=== PATIENT | male | born 1960 | race Caucasian/White ===

== ENCOUNTER 2021-04-18 12:12 | Outpatient (CLI) | payer OTHER, SELFPAY ==
--- NOTE | ~2021-04-18 | CT_ITS ---
EXAMINATION: CT lung screening DATE: 04/18/2021 12:29 INDICATION: Lung cancer screening, personal history of nicotine dependen LUNG CANCER SCREENING,PERSON AL HISTORY OF NICOTINE DEPENDENCE TECHNIQUE: Computed tomography (CT) of the chest was performed without intravenous contrast. Addition al 3D reconstructions utilizing coronal maximum intensity projection (MIP) were performed. Automated exposure control and iterative reconstruction technique were employed. The dose-length product was 27 9.96 mGy-cm. COMPARISON: CT abdomen and pelvis dated 08/25/2017 FINDINGS: Chronic elevation of the left hemidiaphragm. Again seen is a peripheral and lower lung predominant gr oundglass opacities, irregular septal line thickening and peripheral honeycombing consistent with usu al interstitial pneumonia (UIP) pattern chronic interstitial lung disease. There are some associated mild sulcal bronchiectasis most prominent in the lower lobes. 4 mm noncalcified nodule in the right u pper lobe on series 4, image 43. Calcified right apical nodule along with calcified right hilar and m ediastinal lymph nodes and multiple splenic and hepatic calcifications consistent with old granulomat ous disease. No pleural effusion or pneumothorax. Heart size is normal. Atherosclerotic coronary yoseph ry calcific location. Aortic valve calcification. No pericardial effusion. Enlargement of the main pu lmonary artery consistent with pulmonary arterial hypertension. Thoracic aorta is normal in caliber. Likely reactive mildly prominent prevascular lymph node measuring 9 mm in maximal short axis diameter on the sagittal images which remains within normal limits. No other pathologically enlarged thoracic lymphadenopathy. 2 cm cyst at the upper pole of the right kidney. Mild diverticulosis along the visu alized proximal descending colon without surrounding infiltrate change to suggest diverticulitis. Mod erate to severe mid to lower lumbar spondylosis. Chronic appearing mild anterior wedging of T7, minim al at T6, T8, T11 and T12. IMPRESSION: 1. Lung-RADS category 2: Benign appearance or behavior. Continue annual screening with noncontrast lo w-dose chest CT in 12 months. 2. Peripheral and lower lung predominant chronic interstitial lung disease with UIP pattern and with mild associated bronchiectasis in the lower lobes. 3. Enlargement of the main pulmonary artery consistent with pulmonary arterial hypertension. Reviewed, dictated and finalized at location A. [employer] IMPRESSION: 1. Lung-RADS category 2: Benign appearance or behavior. Continue annual screeni ng with noncontrast low-dose chest CT in 12 months. 2. Peripheral and lower lung predominant chronic interstitial lung disease with UIP pattern and with mild associated bronchiectasis in the lower lobes. 3. Enlargement of the main pulmonary artery consistent with pulmonary arterial hypertension.
== END 2021-04-18 12:13 | disposition home or self-care (01) ==
LOC: CHSLAB 12:14
PROVIDERS: PCP Internal Medicine; Visit Provider Internal Medicine
DX: Z12.2 Encounter for screening for malignant neoplasm of respiratory organs (principal); Z87.891 Personal history of nicotine dependence
CPT/HCPCS: 71271

== ENCOUNTER 2021-11-27 09:27 | Emergency (ER) | payer OTHER, SELFPAY ==
--- NOTE | ~2021-11-27 | US_ITS ---
EXAMINATION: US venous doppler LE DATE: 11/27/2021 11:47 INDICATION: Bilateral lower limb swelling and erythema, left greater than right. Positive d-dimer. TECHNIQUE: Grayscale ultrasound images without and with compression and Doppler ultrasound images of the bilateral lower extremity veins were obtained. COMPARISON: None. FINDINGS: Small noncompressible but nonocclusive echogenic focus within the lumen of the right popliteal vein w hich could represent a small amount of thrombosis, potentially calcified versus a calcified valve hilario paige. The visualized portions of right common femoral vein, profunda (deep) femoral vein, femoral vei n, posterior tibial veins, peroneal veins, gastrocnemius vein and greater saphenous vein outflow are patent. The visualized portions of left common femoral vein, profunda femoral vein, femoral vein, popliteal v ein, posterior tibial veins, peroneal veins, gastrocnemius vein and greater saphenous vein outflow ar e patent. Subcutaneous edema at the left calf. IMPRESSION: 1. Small echogenic focus within the lumen of the right popliteal vein which could represent either a very small amount of thrombus or potentially a calcified valve leaflet. 2. No deep venous thrombosis in the left lower limb. Reviewed, dictated and finalized at location A. IMPRESSION: 1. Small echogenic focus within the lumen of the right popliteal vein which co uld represent either a very small amount of thrombus or potentially a calcified valve leaflet. 2. No deep venous thrombosis in the left lower limb.
--- NOTE | ~2021-11-27 | XR_ITS ---
EXAMINATION: XR tibia fibula LT 2V DATE: 11/27/2021 10:20 INDICATION: Left leg swelling and oozing TECHNIQUE: Anteroposterior and lateral views of the left tibia and fibula were obtained on overlappin g proximal and distal images. COMPARISON: None. FINDINGS: Bone alignment is normal. Normal joint space at the left knee, ankle and visualized portion of the mi d and hindfoot. No left knee or ankle joint effusion. Moderate-sized plantar calcaneal spur. Soft tis may swelling with diffuse subcutaneous edema about the left lower leg exam from just above the knee t o the ankle. Some dystrophic soft tissue calcifications anterior to the mid to distal lower leg. IMPRESSION: 1. No left knee or ankle joint effusions or acute osseous abnormality. Reviewed, dictated and finalized at location A.
--- NOTE | ~2021-11-27 | XR_ITS ---
EXAMINATION: XR chest 1V portable DATE: 11/27/2021 10:19 INDICATION: Congestive heart failure TECHNIQUE: frontal view of the chest was obtained. COMPARISON: Chest radiograph dated 07/04/[address] dated 04/18/2021 FINDINGS: Mild basilar predominant reticular opacities appear to correspond to usual interstitial pneumonia (UI P) pattern chronic interstitial lung disease on prior CT. No pleural effusion or pneumothorax. The ca rdiomediastinal silhouette is within normal limits for AP technique. IMPRESSION: 1. Mild basilar chronic interstitial lung disease with UIP pattern on prior CT. Reviewed, dictated and finalized at location A.
[2021-11-27 09:30] VITALS: BP 140/90; PULSE 83; RESP 18; TEMP 36.6; O2SAT 97
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
--- NOTE | 2021-11-27 09:45 | ECG_ITS ---
Measurements Intervals [place] Rate: 81 P: -47 [place]: 177 QRS: 57 QRSD: 97 T: 56 QT: 340 QTc: 397 Interpretive Statements ECTOPIC ATRIAL RHYTHM INCOMPLETE RIGHT BUNDLE BRANCH BLOCK ANTEROSEPTAL MYOCARDIAL INFARCTION , OF INDETERMINATE AGE Electronically Signed On 11-27-2021 12:41:39 CDT by Brayan Tran M.D.
[2021-11-27 10:08] LABS: Hematocrit 41.1 % (40.0-54.0); Hemoglobin 13.2 g/dL (14.0-18.0); Mean Corpuscular HGB Conc 32.1 g/dL (32.0-36.0); Mean Corpuscular Hemoglobin 27.3 pg (27.0-31.0); Mean Corpuscular Volume 84.9 fL (78.0-102.0); Mean Platelet Volume 9.6 fl (8.7-11.0); Platelet Count Result 344 K/mm3 (150-420); Red Blood Count 4.84 M/mm3 (4.70-6.10); White Blood Count 15.2 K/mm3 (4.8-10.8)
[2021-11-27 10:17] LABS: Band Neutrophils Percent 1 % (0-6); Eosinophils Percent Manual 4 % (1-6); Lymphocytes Absolute Manual 2.58 K/mm3 (1.1-4.5); Lymphocytes Percent Manual 17 % (18-44); Monocytes Absolute Manual 1.21 K/mm3 (0.1-0.90); Monocytes Percent Manual 8 % (3-9); Myelocytes Percent 2 %; Neutrophils Absolute Manual 10.48 K/mm3 (1.3-6.7); Neutrophils Percent Manual 68 % (46-73); Total Cells Counted 100
[2021-11-27 10:18] LABS: Platelet Estimate Adequate (Adequate)
[2021-11-27 10:22] LABS: D Dimer 1.77 mg/L (0.19-0.50)
[2021-11-27 10:30] LABS: Lactic Acid Reflex 1.5 mmol/L (0.4-2.0)
[2021-11-27 10:39] LABS: Alanine Aminotransferase 63 U/L (16-63); Albumin Level 2.4 g/dL (3.4-5.0); Alkaline Phosphatase 93 U/L (46-116); Anion Gap 8 mmol/L (8-16); Aspartate Amino Transferase 41 U/L (15-37); Bilirubin,Total 0.2 mg/dL (0.00-1.00); Blood Urea Nitrogen 17 mg/dL (7-18); Calcium 8.7 mg/dL (8.5-10.1); Carbon Dioxide 28 mmol/L (21-32); Chloride 102 mmol/L (98-108); Creatine Kinase 55 U/L (39-308); Estimated CRCL calculation 83 ml/min; Estimated Glomerular Filt Rate > 60; Glucose 126 mg/dL (70-99); NT Pro B Type Natriuretic Pept 175 pg/mL (0-125); Osmolality Calculated 289 mOsm/kg (285-295); Potassium 3.7 mmol/L (3.5-5.1); Sodium 138 mmol/L (136-145); Thyroid Stimulating Hormone 2.17 uIU/mL (0.36-3.74); Total Protein 6.8 g/dL (6.4-8.2)
[2021-11-27 10:40] VITALS: BP 140/82; PULSE 80; RESP 16; O2SAT 99
[2021-11-27 10:51] LABS: Partial Thromboplastin Time 29.8 SEC (23.90-30.70); Prothrombin Time 10.7 Seconds (9.50-12.10)
[2021-11-27 11:00] VITALS: BP 144/92; PULSE 79; RESP 16; TEMP 36.3; O2SAT 97
[2021-11-27 11:11] LABS: Add Urine Microscopic? YES; Appearance Urine Clear (Clear); Bilirubin Urine Negative (Negative); Blood Urine 1+ (Negative); Color Urine Yellow (Yellow); Glucose Urine UA Negative (Negative); Ketones Urine Negative (Negative); Leukocyte Esterase Ur Negative (Negative); Nitrate Urine Negative (Negative); Protein Urine Trace (Negative); Specific Grav Ur >= 1.030 (1.010-1.020); Urobilinogen Urine 0.2 mg/dL (0.2-1.0)
[2021-11-27 11:19] LABS: Bacteria Urine Trace /hpf; Mucus Urine Few /lpf; Squamous Epithelial Cell Urine Rare /hpf (Few); WBC Urine None seen /hpf (0-3)
[2021-11-27 12:24] VITALS: BP 136/70; PULSE 84; RESP 16; TEMP 36.4; O2SAT 97
== END 2021-11-27 12:34 | disposition left against medical advice (07) ==
PROVIDERS: Emergency Provider Internal Medicine Critical Care Medicine; PCP Internal Medicine
DX: M79.89 Other specified soft tissue disorders (principal); L03.116 Cellulitis of left lower limb; J84.9 Interstitial pulmonary disease, unspecified
CPT/HCPCS: 36415; 71045; 73590; 80053; 81001; 82550; 83605; 83880; 84443; 84484; 85025; 85380; 85610; 85730; 87040; 93005; 93970; 99284

== ENCOUNTER 2023-09-10 15:17 | Outpatient (CLI) | payer MEDICARE, SELFPAY ==
--- NOTE | ~2023-09-10 | US_ITS ---
US arterial ankle brachial ind INDICATION: Peripheral arterial disease. Venous ulcer. TECHNIQUE: Segmental pressures and plethysmographic and Doppler waveforms of the brachial and lower e xtremity arteries were obtained. COMPARISON: None. FINDINGS: Right and left brachial artery pressures of 146 mm Hg and 145 mm Hg, respectively, are concordant (no rmal difference <= 30 mmHg). The right ankle-brachial index (NELLY) is 1.27 (normal >= 0.9-1.0). The right great toe-brachial index (TBI) is 0.91 (normal >= 0.60). The left NELLY is 1.25. The left TBI is 0.83. IMPRESSION: 1. Normal ankle-brachial indices. Reviewed, dictated and finalized at location B.
--- NOTE | ~2023-09-10 | US_ITS ---
EXAMINATION:US venous doppler LE BI INDICATION:Venous ulcer. TECHNIQUE: Multiple grayscale, color flow and Doppler images of the right and left lower extremity de ep venous systems were obtained and reviewed. COMPARISON:Ultrasound dated 11/27/2021 FINDINGS: The common femoral, superficial femoral and popliteal veins demonstrate normal respiratory variation, augmentation and compressibility. Color flow is also seen within the posterior tibial, pe roneal, greater saphenous and profunda veins. IMPRESSION: 1: No lower extremity deep venous thrombosis. Reviewed, dictated and finalized at location B.
== END 2023-09-10 15:18 | disposition home or self-care (01) ==
PROVIDERS: PCP Internal Medicine; Visit Provider Internal Medicine
DX: I70.213 Atherosclerosis of native arteries of extremities with intermittent claudication, bilateral legs (principal); L97.519 Non-pressure chronic ulcer of other part of right foot with unspecified severity; R22.43 Localized swelling, mass and lump, lower limb, bilateral
CPT/HCPCS: 93922; 93970

== ENCOUNTER 2024-10-25 12:27 | Inpatient (IN) | payer MEDICARE, SELFPAY ==
[2024-10-25] VITALS (16 sets, daily range): BP systolic 132–197; BP diastolic 90–116; PULSE 105–122; RESP 19–20; TEMP 36.4–38.2; O2SAT 93–98; BMI 29.0
--- NOTE | ~2024-10-25 | US_ITS ---
EXAMINATION:US venous doppler LE BI INDICATION:Bilateral venous stasis TECHNIQUE: Multiple grayscale, color flow and Doppler images of the right and left lower extremity de ep venous systems were obtained and reviewed. COMPARISON:No prior studies for comparison. FINDINGS: The common femoral, superficial femoral and popliteal veins demonstrate normal respiratory variation, augmentation and compressibility. Color flow is also seen within the posterior tibial, pe roneal, greater saphenous and profunda veins. IMPRESSION: 1: No lower extremity deep venous thrombosis. Reviewed, dictated and finalized at location A.
--- NOTE | ~2024-10-25 | CT_ITS ---
EXAMINATION: CT brain wo con DATE: 10/25/2024 13:06 INDICATION: Altered mental status. TECHNIQUE: Computed tomography (CT) of the head was performed without intravenous contrast. The dose- length product was 756.67 mGy-cm. Automated exposure control and iterative reconstruction technique w ere employed. COMPARISON: None FINDINGS: Study limited by motion and beam hardening artifact. Brain parenchymal volume is normal for age. Evaluation for subtle hemorrhage Limited. No significant hemorrhage, mass or mass effect. No ve ntriculomegaly or midline shift. Basilar cisterns are patent. There is intracranial atherosclerosis. IMPRESSION: 1. No acute intracranial abnormality. Limited study. Reviewed, dictated and finalized at location A.
--- NOTE | ~2024-10-25 | XR_ITS ---
XR chest 1V portable 10/25/2024 13:05 Indication: Altered mental status Procedure: AP portable chest Comparison: Comparison to multiple prior studies sequentially, with oldest reviewed study dated 04/2012. Findings: Cardiomegaly with mild interstitial edema. Small pleural effusions. No acute osseous abnorm ality. Impression: 1: Cardiomegaly with mild interstitial edema. Reviewed, dictated and finalized at location A. Impression: 1: Cardiomegaly with mild interstitial edema.
--- NOTE | 2024-10-25 12:38 | ECG_ITS ---
Test Date: 2024-10-25 12:54:30 Measurements Intervals [place] Rate: 104 P: 65 [place]: 168 QRS: 77 QRSD: 95 T: 54 QT: 306 QTc: 404 Interpretive Statements SINUS TACHYCARDIA WITH OCCASIONAL VENTRICULAR PREMATURE COMPLEXES POSSIBLE LEFT ATRIAL ENLARGEMENT [-0.1mV P-WAVE IN V1/V2] SEPTAL MYOCARDIAL INFARCTION , OF INDETERMINATE AGE [40+ ms Q WAVE IN V1/V2] No previous ECG available for comparison Electronically Signed On 10-25-2024 15:22:32 CDT by Alex Luz M.D.
--- OUTSIDE RECORDS SUMMARY | 2024-10-25 12:39 | XMS_ITS | Clinical Summary ---
Author Organization [facility] Address [address] [place] [id number] Care Team Providers Care Gallery Host Name Role Phone Rosibel Franz MD Primary Care Provider [phone] Allergies No known active allergies Medications losartan (COZAAR) 50 MG tablet Take 1 tablet (50 mg total) by mouth daily. Active atorvastatin (LIPITOR) 10 MG tablet Take 1 tablet (10 mg total) by mouth daily. 09/16/2023 Active Immunizations Immunization Administration Dates Next Due Tdap (Boostrix) 12/16/2023 Social History Tobacco Use Types Packs/Day Years Used Date Smoking Tobacco: Some Days Cigarettes Smokeless Tobacco: Never Tobacco Cessation:Ready to Q uit: Not Asked; Counseling Given: Not Answered Alcohol Use Standard Drinks/Week Comments Not Currently 0 (1 standard drink = 0.6 oz pur e alcohol) Sex and Gender Information Value Date Recorded Sex Assigned at Not on file Legal Sex Male 11:34 PM [employer] Gender Identity Not on file Sexual Orientation Not on file Last Filed Vital Signs Vital Sign Reading Time Taken Comments Blood Pressure 161/103 12/16/2023 11:45 AM CDT Pulse 85 12/16/2023 11:45 AM CDT Temperature 36.8 C (98.3 F) 12/16/2023 10:38 AM CDT Respiratory Rate 17 12/16/2023 11:45 AM CDT Oxygen Saturation 99% 12/16/2023 11:45 AM CDT Inhaled Oxygen Concentration - - Weight 109.8 kg (242 lb) 12/16/2023 5:01 AM CDT Height 185.4 cm (6' 1) 12/16/2023 5:01 AM CDT Body Mass Index 31.93 12/16/2023 5:01 AM CDT Plan of Treatment Health Maintenance Due Date Last Done Comments Colorectal Cancer Screening Colonoscopy (10 Years) 1961 Annual Physical 1964 Hepatitis C 06/06/1979 Zoster Vaccines (1 of 2) 06/06/2011 Pneumococcal Vaccine: 50+ Years (2 of 2 - PCV) 05/13/2013 05/13/2012 COVID-19 Vaccine (1 - 2023-2 5 season) 2023 DTaP, Tdap and Td Vaccines ( 3 - Td or Tdap) 12/15/2033 12/16/2023, 07/01/2014 RSV Immunization or 60+ Years (1 - 1-dose 75+ series) 2036 Meningococcal B Vaccine Aged Out No l onger eligible based on patient's age to complete this topic Meningococcal Vaccine Aged Out No glenn lawrence eligible based on patient's age to complete this topic RSV Immunizations Under 20 Months Aged Out No longer eligible b ased on patient's age to complete this topic Additional Health Concerns Infection Onset Date 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
--- NOTE | 2024-10-25 12:40 | ED_ITS ---
HPI - Skin/Abscess/Foreign Bdy General Chief complaint: Fever Stated complaint: fever, cellulitis to legs, found unresponsive Time Seen by Provider: 10/25/24 12:38 Source: patient Mode of arrival: EMS Limitations: altered mental status ( Suspected over the past 24 hours; appears baseline at this time) History of Present Illness HPI narrative: patient is a 64-year-old male found slumped over in his van and PD and EMS were called to evaluate the patient. PD was able to get him out of the car and sit him on the side and he was AAO x3. EMS brought him to the emergency room. His temperature was a 102.8?. Patient has been sitting in his van on and off for the past 24 hours. It is currently very hot outside. He has been arguing with his girlfriend as well over the past day. MD complaint: rash ( Left lower extremity and left thigh) and other ( patient has been out in the heat and appears very dry) Onset (ago): day(s) ( 2) Location: LLE Severity: mild Severity scale (1-10): 3 Quality: aching Pain Consistency: constant Relieving factors: none Exacerbating factors: none Context: other ( patient has been outside in the heat for the past 24 hours in his van as well as bilateral lower extremity swelling with bandages that are soiled of urine on his ankles and feet; further he has left inner thigh and left lower extremity redness of cellulitis and elevated temperature) Associated symptoms: fever Treatments prior to arrival: bandages Related Data Home Medications ?Medication ?Instructions ?Recorded ?Confirmed ?Last Taken ?Type atorvastatin 10 mg tablet 10 mg PO DAILY 11/27/21 10/25/24 Unknown History losartan 100 mg tablet 100 mg PO DAILY 11/27/21 10/25/24 Unknown History Allergies Allergy/AdvReac Type Severity Reaction Status Date / Time No Known Allergies Allergy Verified 10/25/24 12:52 Review of Systems 2 Review of Systems: All systems reviewed & are unremarkable except as noted in HPI and below Constitutional: Constitutional: Reports no additional constitutional complaints Eyes: Eyes: Reports no additional eye complaints ENT: Reports system reviewed and no additional complaints, except as documented Cardiovascular: Cardiovascular: Reports no additional cardiovascular complaints Respiratory: Respiratory: Reports no additional respiratory complaints Gastrointestinal: Gastrointestinal: Reports no additional gastrointestinal complaints Genitourinary: Genitourinary: Reports no additional male genitourinary complaints Musculoskeletal: Musculoskeletal: Reports no additional musculoskeletal complaints Integumentary/Breasts: Skin/Breast: Reports system reviewed and no additional complaints, except as docu Neurologic: Reports system reviewed and no additional complaints, except as documented Psychiatric: Psychiatric: Reports no additional psychiatric complaints Endocrine: Endocrine: Reports no additional endocrine complaints Hematologic/Lymphatic: Hematologic/Lymphatic: Reports no additional hematologic/lymphatic complaints Allergic/Immunologic: Allergic/Immunologic: Reports no additional allergic/immunologic complaints PMFSH Past Medical History Medical History Dyslipidemia Social History Social History Smoking packs per day: 1 Smoking cigarettes per day: 20.0 Smoking status: Current every day smoker Tobacco type: cigarettes Second hand tobacco smoke exposure: No Substance use: current Substance use type: marijuana and amphetamines Do You Feel Safe in your Home?: Yes Lack of Transportation: No Lack of Food: Never True Current Housing: I Have Housing Concerned About Future Housing: No Difficulty Paying Gas/Electric Bills: No Difficulty Paying for Meds: No Currently Unemployed: No Education: High School Diploma/GED Difficulty w/ Childcare or Family Care: No Spiritual care concerns: No Exam 2 Const: General: no acute distress Nutritional Appearance: well nourished Orientation/consciousness: patient oriented x3 Limitations: no limitations HENMT: Head: normal to inspection Ears: external ears normal F leon/Nose/Sinus: Normal external nose present Eyes: Conjunctivae: conjunctivae normal Pupils: Equal, round and reactive pupils present EOM: EOMs intact bilaterally Neck: Neck: normal visual inspection Chest: Chest palpation & inspection: normal inspection of the chest Resp: Effort & Inspection: normal respiratory effort and not labored A uscultation: clear to auscultation bilaterally and no crackles Cardio: Rate: regular rate Rhythm: regular rhythm Heart sounds: no murmurs GI: Inspection: non-distended GI Palp: Yes Soft to palpation and No Tenderness to palpation present (GI) Auscultation: normal bowel sounds : General: Yes bladder normal to palpation Back/Spine/Pelvis: Back: no CVA tenderness Skin: General skin exam: No normal color Rashes: rash noted Wounds: no wounds Other: left inner thigh has an elongated inner thigh erythema/ rash of cellulitis; left lower extremity from the mid guevara down to the ankle has a erythema mostly circumferentially of cellulitis Neuro: General: patient oriented x3, moves all extremities, no meningeal signs, no focal motor deficits and CN's II-XI intact bilaterally Cranial nerves: Yes Nystagmus not present Speech: normal speech Other: fast exam is negative, NIH score is 0, GCS is 15 Extrem: General: normal to inspection Psych: Mental Status: mental status grossly normal Affect: normal affect Attitude: cooperative Course Vital Signs Vital signs: Vital Signs Temperature 38.2 C H 10/25/24 12:27 Pulse Rate 106 H 10/25/24 12:27 Respiratory Rate 20 10/25/24 12:27 Blood Pressure 132/93 H 10/25/24 12:27 Pulse Oximetry 93 10/25/24 12:27 Oxygen Delivery Room Air 10/25/24 12:27 Temperature 36.4 C 10/26/24 00:00 Pulse Rate 89 10/26/24 04:00 Respiratory Rate 20 10/26/24 00:00 Blood Pressure 124/69 10/26/24 00:00 Pulse Oximetry 96 10/26/24 00:00 Oxygen Delivery Room Air 10/26/24 00:00 MDM - Skin/Abscess/Foreign Bdy MDM Narrative Medical decision making narrative: patient is a 64-year-old male with over heat versus sepsis with elevated temperature and cellulitis of the left lower extremity and left inner thigh as well as sitting in his car for the last 24 hours with the heat outside elevated. We will do a septic workup as well as monitor him for heat exhaustion. He will get IV fluids. We will cool the patient. We will check for altered mental status over the past 24 hours with a workup in that direction as well. Lab Data Attestation: I reviewed the patient's lab results. 10/25/24 12:55 10/25/24 12:55 Labs: Lab Results 10/25/24 10/25/24 10/25/24 Range/Units 12:39 12:40 12:55 WBC 17.2 H (4.8-10.8) K/mm3 RBC 6.69 H (4.70-6.10) M/mm3 Hgb 17.6 (14.0-18.0) g/dL Hct 54.9 H (40.0-54.0) % MCV 82.1 (78.0-102.0) fL MCH 26.3 L (27.0-31.0) pg MCHC 32.1 (32-36) g/dL RDW 16.5 H (11.6-14.4) % Plt Count 252 (150-420) K/mm3 MPV 9.3 (8.7-11.0) fl Immature Gran % (Auto) 0.6 H (0.0-0.0) % Neut % (Auto) 90.1 H (50.0-70.0) % Lymph % (Auto) 3.8 L (18.0-42.0) % Carroll % (Auto) 5.3 (2.0-11.0) % Eos % (Auto) 0.0 L (1.0-6.0) % Baso % (Auto) 0.2 (0.0-1.0) % Lymph # (Auto) 0.65 L (1.10-4.50) K/mm3 Carroll # (Auto) 0.91 H (0.10-0.90) K/mm3 Eos # (Auto) 0.00 L (0.02-0.50) K/mm3 Baso # (Auto) 0.04 (0.00-0.10) K/mm3 Abs Immat Gran (auto) 0.11 H (0.00-0.00) K/mm3 Absolute Neuts (auto) 15.46 H (1.70-7.20) K/mm3 Absolute Nucleated RBC 0.00 (0.00-0.00) K/mm3 Nucleated RBC % 0.0 (0-0.0) % Sodium 139 (137-145) mmol/L Potassium 4.0 (3.4-5.0) mmol/L Chloride 104 (98-107) mmol/L Carbon Dioxide 27 (22-30) mmol/L Anion Gap 8 (4-12) mmol/L BUN 36 H (9-20) mg/dL Creatinine 1.93 H (0.7-1.3) mg/dL Estim Creat Clear Calc Not Reportable Estimated GFR 35 L (59 - ) Glucose 136 H (65-110) mg/dL Calculated Osmolality 298 H (285-295) mOsm/kg Lactic Acid 1.9 (0.4-2.0) mmol/L Calcium 8.9 (8.4-10.2) mg/dL Total Bilirubin 0.6 (0.2-1.3) mg/dL AST 59 (17-59) U/L ALT 29 (6-50) U/L Alkaline Phosphatase 93 (38-126) U/L Troponin I 0.026 (0.000-0.034) ng/mL NT-Pro-B Natriuret Pep 454 H (19.9-100) pg/mL Total Protein 8.8 H (6.3-8.2) g/dL Albumin 4.0 (3.5-5.1) g/dL Urine Color Yellow (Yellow) Urine Appearance Clear (Clear) Urine pH 6.0 (5.0-8.0) Ur Specific [place] 1.020 (1.010-1.020) Urine Protein 2+ H (Negative) Urine Glucose (UA) Negative (Negative) Urine Ketones Trace H (Negative) Ur Blood (Man) 3+ H (Negative) Urine Nitrate Negative (Negative) Urine Bilirubin Negative (Negative) Urine Urobilinogen 1.0 (0.2-1.0) mg/dL Leukocyte Esterase Rfl Negative (Negative) KEMAR/UL Urine RBC 3-5 H (0-2) /hpf Urine WBC 0-3 (0-3) /hpf Ur Squamous Epith Cells Few (Few) /hpf Urine Bacteria 1+ H (None) /hpf Granular Casts 1-2 H (None) /lpf Urine Mucus Present /lpf Imaging Data Attestation: I personally reviewed and interpreted this imaging study as follows: Radiologist's impression: Chest x-ray is negative for acute process CT scan of the head was negative for acute process ECG Data EKG #1: Attestation: I personally reviewed and interpreted this ECG as follows: ECG completion date: 10/25/24 ECG completion time: 13:18 EKG Interpretation: tachycardia, sinus rhythm, PVCs, non-specific ST changes, normal QRS, normal QT and NL axis Discharge Plan Discharge Clinical Impression: EDELMIRA (acute kidney injury), Acute dehydration, Sepsis due to cellulitis Heat exhaustion Qualifiers: Encounter type: initial encounter Qualified Code(s): T67.5XXA - Heat exhaustion, unspecified, initial encounter Patient Disposition: [facility] Condition: Stable Time of Disposition: 14:15
[2024-10-25 13:00] LABS: Hematocrit 54.9 % (40.0-54.0); Hemoglobin 17.6 g/dL (14.0-18.0); Immature Granulocyte Percent A 0.6 % (0.0-0.0); Lymphocytes Absolute Auto 0.65 K/mm3 (1.10-4.50); Mean Corpuscular HGB Conc 32.1 g/dL (32-36); Mean Corpuscular Hemoglobin 26.3 pg (27.0-31.0); Mean Corpuscular Volume 82.1 fL (78.0-102.0); Nucleated Red Blood Cells Absolute Auto 0.00 K/mm3 (0.00-0.00); Nucleated Red Blood Cells Perc 0.0 % (0-0.0); Platelet Count Result 252 K/mm3 (150-420); Red Blood Count 6.69 M/mm3 (4.70-6.10); White Blood Count 17.2 K/mm3 (4.8-10.8)
[2024-10-25] MEDS: SODIUM CHLORIDE 0.9% IV 1,000 ML 999 ML IV CONT ×2 (13:05→13:40)
[2024-10-25 13:12] LABS: Alanine Aminotransferase 29 U/L (6-50); Albumin Level 4.0 g/dL (3.5-5.1); Alkaline Phosphatase 93 U/L (38-126); Anion Gap 8 mmol/L (4-12); Aspartate Amino Transferase 59 U/L (17-59); Bilirubin,Total 0.6 mg/dL (0.2-1.3); Blood Urea Nitrogen 36 mg/dL (9-20); Calcium 8.9 mg/dL (8.4-10.2); Carbon Dioxide 27 mmol/L (22-30); Chloride 104 mmol/L (98-107); Estimated Glomerular Filt Rate 35; Glucose 136 mg/dL (65-110); Osmolality Calculated 298 mOsm/kg (285-295); Potassium 4.0 mmol/L (3.4-5.0); Sodium 139 mmol/L (137-145); Total Protein 8.8 g/dL (6.3-8.2)
--- OUTSIDE RECORDS SUMMARY | 2024-10-25 13:13 | XMS_ITS | Clinical Summary ---
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
[2024-10-25 13:23] LABS: Troponin I 0.026 ng/mL (0.000-0.034)
[2024-10-25] MEDS: PIPERACILLIN/TAZOBACTAM SOD 3.375 GM in SODIUM CHLORIDE 0.9% IV 50 ML 100 ML IVPB (13:40)
[2024-10-25 13:42] LABS: NT Pro B Type Natriuretic Pept 454 pg/mL (19.9-100)
--- NOTE | 2024-10-25 15:10 | ADMGEN ---
This patient, Juan Guillory, was admitted to 2nd Floor Room 211-1. Patient/family oriented to hospital policies and general routines including ID bracelet, bed and alarms, visiting hours, pain management, procedures, bathroom and other care routines, personal items, smoking policy, room service/diet, and visiting hours. Information on how to activate the Rapid Response Team has been discussed. Patient/Family are encouraged to report perceived risks to care and to ask questions if they do not understand what they are told or what they should do.
[2024-10-25 16:07] LABS: Add Urine Microscopic? YES; Appearance Urine Clear (Clear); Glucose Urine UA Negative (Negative); Leukocyte Esterase Ur Negative LEU/UL (Negative); Nitrate Urine Negative (Negative); Specific Grav Ur 1.020 (1.010-1.020)
[2024-10-25] MEDS: LOSARTAN POTASSIUM 50 MG TABLET PO (17:34)
[2024-10-25] MEDS: ceFAZolin 1 GM in SODIUM CHLORIDE 0.9% IV 50 ML 100 ML IVPB (17:36)
[2024-10-25] MEDS: SODIUM CHLORIDE 0.9% IV 1,000 ML 100 ML IV CONT (17:36)
[2024-10-25] MEDS: ACETAMINOPHEN 325 MG TABLET 650 MG PO (21:43)
[2024-10-26] VITALS: BP 124/69; PULSE 97; RESP 20; TEMP 36.4; O2SAT 96
[2024-10-26] MEDS: ceFAZolin 1 GM in SODIUM CHLORIDE 0.9% IV 50 ML 100 ML IVPB ×3 (00:03→17:18)
[2024-10-26 04:00] VITALS: PULSE 89
--- NOTE | 2024-10-26 04:00 | PC.NURSE ---
Patient awake, more alert, asking for food and more water, sandwich and ice water provided. Explained to pt why he is here, seems to understand at this time.
[2024-10-26] MEDS: SODIUM CHLORIDE 0.9% IV 1,000 ML 100 ML IV CONT (04:34)
[2024-10-26 08:00] VITALS: BP 102/66; PULSE 88; PULSE 90; RESP 18; TEMP 36.7; O2SAT 95
[2024-10-26 08:03] LABS: Hematocrit 47.2 % (40.0-54.0); Hemoglobin 14.8 g/dL (14.0-18.0); Immature Granulocyte Percent A 0.4 % (0.0-0.0); Lymphocytes Absolute Auto 0.90 K/mm3 (1.10-4.50); Mean Corpuscular HGB Conc 31.4 g/dL (32-36); Mean Corpuscular Hemoglobin 26.0 pg (27.0-31.0); Mean Corpuscular Volume 83.0 fL (78.0-102.0); Nucleated Red Blood Cells Absolute Auto 0.00 K/mm3 (0.00-0.00); Nucleated Red Blood Cells Perc 0.0 % (0-0.0); Platelet Count Result 217 K/mm3 (150-420); Red Blood Count 5.69 M/mm3 (4.70-6.10); White Blood Count 16.8 K/mm3 (4.8-10.8)
[2024-10-26 08:14] LABS: Alanine Aminotransferase 23 U/L (6-50); Albumin Level 2.7 g/dL (3.5-5.1); Alkaline Phosphatase 75 U/L (38-126); Anion Gap 3 mmol/L (4-12); Aspartate Amino Transferase 44 U/L (17-59); Bilirubin,Total 0.4 mg/dL (0.2-1.3); Blood Urea Nitrogen 26 mg/dL (9-20); Calcium 7.9 mg/dL (8.4-10.2); Carbon Dioxide 28 mmol/L (22-30); Chloride 107 mmol/L (98-107); Estimated CRCL calculation 53 ml/min; Estimated Glomerular Filt Rate 51; Glucose 106 mg/dL (65-110); Magnesium 1.9 mg/dL (1.6-2.3); Osmolality Calculated 290 mOsm/kg (285-295); Potassium 3.9 mmol/L (3.4-5.0); Sodium 138 mmol/L (137-145); Total Protein 6.2 g/dL (6.3-8.2)
[2024-10-26 08:17] LABS: Hemoglobin A1C 5.9 % (<5.7)
[2024-10-26] MEDS: LOSARTAN POTASSIUM 50 MG TABLET PO (08:59)
[2024-10-26] MEDS: ENOXAPARIN 40 MG/0.4 ML SYRINGE SUB-Q (08:59)
--- NOTE | 2024-10-26 09:01 | P.HP_ITS ---
H&P: HPI History of Present Illness Date/Time: 10/26/24 09:01 Chief Complaint: Fever/ Unresponsive/ cellulitis of bilateral lower extremities Narrative: Patient is a 64-year-old male who was brought into the emergency department by PD and EMS after they were called for further evaluation. Per the medical chart patient girlfriend called EMS he was found sitting in his van unresponsive and found to have a temperature of 102.8 per reports patient had been sitting in his van for greater than 24 hours with outside temperatures at severe highs. when speaking with patient he thought he was brought in 4 days prior does not recall events leading to his arrival to the emergency department patient is not the best historian and reports he currently takes no medications and is unsure of his previous medical history but did report he has had multiple issues with his lower extremities. patient states he was indicator earlier this year due to his lower extremities at which time they had recommended IV antibiotic therapy however he signed out AMA from that facility. patient currently does not follow with any primary care physician outpatient. Patient states he does smoke about a pack of cigarettes a day when questioned about illicit drug use or alcohol he states he does not do either however his previous medical records indicate he does smoke marijuana and has done amphetamines. In the ED: in the emergency department patient was found to have leukocytosis of 17, temperature was down to 100.8, tachycardia 122, BP stable. CXR showed cardiomegaly with some interstitial edema and head CT with no acute findings. lactic acid was within normal limits and severe bilateral lower extremity cellulitis with venous insufficiency. patient is also found to have an acute kidney injury likely secondary to heat exposure and dehydration with a creatinine of 1.93. Patient received IV fluids in the emergency department and was started on IV Zosyn with blood cultures pending Hospital Course: Patient was admitted to the medical unit for further evaluation sepsis without septic shock secondary to cellulitis and dehydration with acute kidney injury. I did continue IV fluids overnight but discontinued following morning once patient was tolerating oral hydration due to the interstitial edema and cardiomegaly. patient was transitioned to IV cefazolin and IV vancomycin for cellulitis pending cultures WBC improved mildly to 16. patient was noted to have hypertension previously had taken losartan but has not been taking for quite some time I did start patient on losartan 50 mg daily. at time of assessment patient denied any chest pain, shortness breath, nausea, vomiting. Patient did endorse mild pain to lower extremities and reported to me he thought he was brought to the emergency room 4 days ago and does not believe me that he was brought in yesterday otherwise alert and oriented. Review of Systems Review of Systems: All systems reviewed & are unremarkable except as noted in HPI and below PMFSH Past Medical History Medical History Dyslipidemia Social History Social History Smoking packs per day: 1 Smoking cigarettes per day: 20.0 Smoking status: Current every day smoker Tobacco type: cigarettes Second hand tobacco smoke exposure: No Substance use: current Substance use type: marijuana and amphetamines Do You Feel Safe in your Home?: Yes Lack of Transportation: No Lack of Food: Never True Current Housing: I Have Housing Concerned About Future Housing: No Difficulty Paying Gas/Electric Bills: No Difficulty Paying for Meds: No Currently Unemployed: No Education: High School Diploma/GED Difficulty w/ Childcare or Family Care: No Spiritual care concerns: No Meds Home Medications and Allergies Home Medications ?Medication ?Instructions ?Recorded ?Confirmed ?Type amoxicillin 875 mg-potassium 1 tablet PO Q12H #14 tabs 11/27/21 10/25/24 Rx clavulanate 125 mg tablet atorvastatin 10 mg tablet 10 mg PO DAILY 11/27/21 10/25/24 History losartan 100 mg tablet 100 mg PO DAILY 11/27/21 10/25/24 History sulfamethoxazole 800 1 tablet PO Q12H #14 tabs 11/27/21 10/25/24 Rx mg-trimethoprim 160 mg tablet (Bactrim DS) Allergies Allergy/AdvReac Type Severity Reaction Status Date / Time No Known Allergies Allergy Verified 10/25/24 12:52 Vital Signs Vital Signs - 24 hr 10/25/24 12:27 10/25/24 12:30 10/25/24 12:46 Temperature 100.7 F H Pulse Rate 106 H 106 H Respiratory Rate 20 19 Blood Pressure 132/93 H Pulse Oximetry 93 96 Oxygen Delivery Room Air 10/25/24 13:28 10/25/24 13:30 10/25/24 13:32 Temperature Pulse Rate 114 H 118 H Respiratory Rate Blood Pressure 194/116 H Pulse Oximetry 97 95 98 Oxygen Delivery 10/25/24 13:33 10/25/24 13:45 10/25/24 13:46 Temperature Pulse Rate 113 H 122 H 107 H Respiratory Rate Blood Pressure 197/98 H 171/114 H Pulse Oximetry 96 95 93 Oxygen Delivery 10/25/24 14:00 10/25/24 14:01 10/25/24 16:00 Temperature 99.0 F 98.1 F Pulse Rate 109 H 110 H 105 H Respiratory Rate 20 Blood Pressure 185/104 H 145/90 H Pulse Oximetry 95 93 94 Oxygen Delivery Room Air 10/25/24 16:40 10/25/24 20:00 10/25/24 20:00 Temperature Pulse Rate 105 H 114 H 114 H Respiratory Rate 20 20 Blood Pressure Pulse Oximetry 94 94 Oxygen Delivery Room Air Room Air 10/25/24 21:43 10/25/24 22:40 10/26/24 00:00 Temperature 100.8 F H 97.6 F Pulse Rate 97 Respiratory Rate Blood Pressure Pulse Oximetry Oxygen Delivery 10/26/24 00:00 10/26/24 04:00 10/26/24 08:00 Temperature 97.6 F Pulse Rate 97 89 90 Respiratory Rate 20 Blood Pressure 124/69 Pulse Oximetry 96 Oxygen Delivery Room Air 10/26/24 08:00 Temperature 98.1 F Pulse Rate 88 Respiratory Rate 18 Blood Pressure 102/66 Pulse Oximetry 95 Oxygen Delivery Room Air H&P: Results Labs Labs: Short CBC 10/25/24 10/26/24 Range/Units 12:55 07:40 WBC 17.2 H 16.8 H (4.8-10.8) K/mm3 Hgb 17.6 14.8 (14.0-18.0) g/dL Hct 54.9 H 47.2 (40.0-54.0) % Plt Count 252 217 (150-420) K/mm3 BMP 10/25/24 10/26/24 12:55 07:40 Sodium 139 138 Potassium 4.0 3.9 Chloride 104 107 Carbon Dioxide 27 28 BUN 36 H 26 H D Creatinine 1.93 H 1.41 H Glucose 136 H 106 Calcium 8.9 7.9 L Cardiac Enzymes 10/25/24 Range/Units 12:55 Troponin I 0.026 (0.000-0.034) ng/mL Liver Function 10/25/24 10/26/24 Range/Units 12:55 07:40 Total Bilirubin 0.6 0.4 (0.2-1.3) mg/dL AST 59 44 (17-59) U/L ALT 29 23 (6-50) U/L Alkaline Phosphatase 93 75 (38-126) U/L Albumin 4.0 2.7 L (3.5-5.1) g/dL Urine 10/25/24 Range/Units 12:39 Urine Color Yellow (Yellow) Urine Appearance Clear (Clear) Urine pH 6.0 (5.0-8.0) Ur Specific [place] 1.020 (1.010-1.020) Urine Protein 2+ H (Negative) Urine Glucose (UA) Negative (Negative) Assessment and Plan Assessment and plan (1) Sepsis due to cellulitis: Code(s): L03.90 - Cellulitis, unspecified; A41.9 - Sepsis, unspecified organism Status: Acute Assessment and Plan: patient presented with cellulitis to bilateral lower extremities, leukocytosis, tachycardia with normal lactic acid no hypotension patient initially started on IV Zosyn in the ED, did receive IV fluids 2 L * switch patient to IV Zosyn and vancomycin pending cultures * blood cultures Pending * venous Dopplers to rule out any DVT * ordered echocardiogram do cardiomegaly but some concern of his previous drug use rule out any vegetation currently no cultures back but have to order echo early due to availability (2) Venous insufficiency: Code(s): I87.2 - Venous insufficiency (chronic) (peripheral) Status: Acute Assessment and Plan: patient appears to have some underlying venous insufficiency which he believes he has been diagnosed with before * encourage elevation when at rest * reports he was supposed to see a vascular /printing machinist at another hospital outpatient (3) Hypertension: Code(s): I10 - Essential (primary) hypertension Status: Acute Assessment and Plan: patient with elevated blood pressures as high as 197/98 * started patient on losartan 50 mg since EDELMIRA improved * hydralazine p.r.n. 20 mg IVP systolics greater than 180 (4) EDELMIRA (acute kidney injury): Code(s): N17.9 - Acute kidney failure, unspecified Status: Acute Assessment and Plan: patient with acute kidney injury likely secondary to dehydration and heat exhaustion * received IV fluids 2 L in the ED * continued 100 mL/hour overnight discontinued now that patient is eating and drinking * creatinine 1.41 10/26 need to monitor closely if worsens need to switch BP medication potassium was 3.9 today * avoid nephrotoxic medications (5) Acute dehydration: Code(s): E86.0 - Dehydration Status: Acute Assessment and Plan: SEE ABOVE #4 (6) Heat exhaustion: Qualifiers: Encounter type: initial encounter Qualified Code(s): T67.5XXA - Heat exhaustion, unspecified, initial encounter Code(s): T67.5XXA - Heat exhaustion, unspecified, initial encounter Status: Acute Assessment and Plan: patient initially found to have 102.8 temperature after spinning well over 24 hours in a van in [place] heat unsure of temperature is related just to heat exhaustion also was found to have bilateral lower extremity cellulitis. patient was hydrated with IV fluids and cooled no further temperatures since admission (7) Cardiomegaly: Code(s): I51.7 - Cardiomegaly Status: Acute Assessment and Plan: CXR showing cardiomegaly and interstitial edema, BNP mildly elevated * discontinued IV fluids noted patient is tolerating oral intake * echocardiogram pending Plan Code status: Full code per patient DVT prophylaxis: Lovenox Stress ulcer prophylaxis: NA PT/OT notes: ambulatory Disposition: patient continues admission to the medical unit for sepsis secondary to bilateral extremity cellulitis, heat exhaustion with dehydration and acute kidney injury continue with IV antibiotics pending cultures. Unsure if patient will stay I recommended continued admission for IV antibiotics and to monitor blood cultures he understands the risks if he does decide to leave AMA. Quality VTE Prophylaxis VTE prophylaxis: pharmacologic ordered -Patient's previous records reviewed on admission -ER notes reviewed in detail on admission -discussed all findings and current treatment plan with patient/Family/POA -Consultations reviewed for recommendations -Patient's disposition for safe discharge discussed with pillowcase cleaner Dictation performed by [employer] direct speech recognition software, therefore clinical information systems director variants and typographical errors may occur. Hospitalist MIPS Advance Care Plan I have confirmed that the patient's Advanced Care Plan is present, code status is documented, or surrogate decision maker is listed in patient medical record.: Yes Medication Reconciliation I have utilized all available resources to obtain, update and review the patients current medications (includes all prescriptions, OTC, herbals, cannabis, and nutritional supplements).: Yes The patient is not eligible for med reconciliation; the patient is in a emergent medical situation where delaying treatment would jeopardize the patients health.: No
[2024-10-26] MEDS: VANCOMYCIN 1,500 MG/NS 500 ML 1,500 MG/500 ML BAG 250 MG IVPB (10:49)
--- NOTE | 2024-10-26 11:18 | PC.NURSE ---
Patient status changed to Inpatient, remains in same bed at this time, vancomycin infusing, denies needs
[2024-10-26 12:00] VITALS: PULSE 90
[2024-10-26] MEDS: HYDROcodone/acetaminophen (*CRX) 5-325 MG TABLET 1 TAB PO ×2 (12:52→17:19)
--- NOTE | 2024-10-26 15:30 | ECHO_ITS ---
Patient Info Name: Juan Guillory Age: 64 years : 1960 Gender: Male Ht: 72 in Wt: 215 lbs BSA: 2.25 m2 HR: 90 bpm BP: 102 / 66 mmHg Technical Quality: Good Exam Date: 10/26/2024 3:43 PM Patient Status: I Admit Date: 10/26/2024 Exam Type: CA echo doppler color flow Complete two-dimensional, color flow and Doppler transthoracic echocardiogram is performed. Staff Referring Physician: Bonnie Osman [employer] Installer: Dee Heredia Attending Provider: Lico Escamilla MD Summary 1. Complete two-dimensional, color flow and Doppler transthoracic echocardiogram is performed. 2. Left ventricular chamber dimension is normal. 3. Ventricular septum is sigmoid shaped. 4. Left ventricular systolic function is normal, estimated at 60-65. 5. There is mild concentric increased left ventricular wall thickness. 6. The left ventricular diastolic function is grade I diastolic dysfunction. 7. E/e' 4 is not elevated. 8. Right ventricular chamber dimension is mildly enlarged. 9. There is mild aortic valve sclerosis. 10. There is mild aortic valve regurgitation. 11. There is mild tricuspid valve regurgitation. 12. Mild pulmonary hypertension, estimated pulmonary arterial systolic pressure is 46 mmHg. 13. The aortic root size at the sinus of Valsalva is moderately dilated at 4.8 cm. Left Ventricle E/e' 4 is not elevated. Left ventricular chamber dimension is normal. Left ventricular systolic function is normal, estimated at 60-65. There is mild concentric increased left ventricular wall thickness. The left ventricular diastolic function is grade I diastolic dysfunction. Ventricular septum is sigmoid shaped. Right Ventricle Right ventricular chamber dimension is mildly enlarged. Right ventricular systolic function is normal. Left Atria Left atrial chamber dimension is normal. Right Atria Right atrial chamber dimension is normal. Aortic Valve The aortic valve is trileaflet. There is mild aortic valve sclerosis. There is no aortic valve stenosis. There is mild aortic valve regurgitation. No aortic valve vegetation visualized. Pulmonic Valve There is no pulmonic regurgitation. Mitral Valve There is no mitral valve stenosis. There is no mitral valve regurgitation. No mitral valve vegetation visualized. Tricuspid Valve There is mild tricuspid valve regurgitation. Mild pulmonary hypertension, estimated pulmonary arterial systolic pressure is 46 mmHg. No tricuspid valve vegetation visualized. Pericardium/Pleural There is no pericardial effusion. Inferior Vena Cava Normal inferior vena cava with >50% collapse upon inspiration consistent with normal right atrial pressure, 5 mmHg. Aorta The aortic root size at the sinus of Valsalva is moderately dilated at 4.8 cm. Left Ventricular Outflow Tract Name Value Normal LVOT 2D LVOT Diameter 2.4 cm LVOT Doppler LVOT Peak Velocity 126 cm/s LVOT Peak Gradient 6 mmHg LVOT Mean Gradient 3 mmHg LVOT VTI 21 cm LVOT VTI/AV VTI Ratio 1.0 LVOT Stroke Volume 92 ml LVOT CO 7.4 l/min LVOT CI 3.3 l/min/m2 Pulmonic Valve Name Value Normal PV Doppler PV Peak Velocity 102 cm/s PV Peak Gradient 4 mmHg Mitral Valve Name Value Normal MV Doppler MV Peak Gradient 2 mmHg MV Mean Gradient 1 mmHg MV Area (Cont Eq VTI) 6.3 cm2 MV Diastolic Function MV E Peak Velocity 48 cm/s MV A Peak Velocity 64 cm/s MV E/A 0.8 MV Decel Time (PW) 285 ms MV Annular TDI MV E/e' (Septal) 4.5 MV E/e' (Lateral) 5.6 MV E/e' (Average) 5.0 Tricuspid Valve Name Value Normal TV Regurgitation Doppler TR Peak Velocity 319 cm/s TR Peak Gradient 41 mmHg Estimated PAP/RSVP RA Pressure 5 mmHg <=5 PA Systolic Pressure 46 mmHg <36 RV Systolic Pressure 46 mmHg <36 TV Annular TDI TV Lateral Marylou s' Velocity 16.6 cm/s >=9.5 Aortic Valve Name Value Normal AV Doppler AV Peak Velocity 135 cm/s AV Peak Gradient 7 mmHg AV Mean Gradient 5 mmHg AV VTI 21 cm AV Area (Cont Eq VTI) 4.4 cm2 >=3.0 AV Area (Cont Eq Jose) 4.2 cm2 AV DI (Jose) 0.93 AV Regurgitation 2D LVOT Area 4.5 cm2 Ventricles Name Value Normal LV Dimensions 2D/MM IVS Diastolic Thickness (2D) 1.2 cm 0.6-1.0 LVID Diastole (2D) 4.2 cm 4.2-5.8 LVIW Diastolic Thickness (2D) 1.1 cm 0.6-1.0 LVID Systole (2D) 2.7 cm 2.5-4.0 LVOT Diameter 2.4 cm LV Mass (2D Cubed) 169.50 g 88.00-224.00 LV Mass Index (2D Cubed) 75 g/m2 49-115 Relative Wall Thickness (2D) 0.55 <=0.42 LV Fractional Shortening/Ejection Fraction 2D/MM LV Fractional Shortening (2D) 35 % 25-43 LV EF (2D Teichholz) 65 % LV Diastolic Volume (4C MOD) 118 ml LV EF (4C MOD) 51 % LV Diastolic Volume (2C MOD) 107 ml LV EF (2C MOD) 46 % LV Diastolic Volume (BP MOD) 114 ml 62-150 LV Diastolic Volume Index (BP MOD) 51 ml/m2 34-74 LV Systolic Volume (BP MOD) 60 ml 21-61 LV Systolic Volume Index (BP MOD) 27 ml/m2 11-31 LV EF (BP MOD) 47 % 52-72 LV Diastolic Length (4C) 9.5 cm LV Systolic Length (4C) 7.9 cm LV Stroke Volume (4C MOD) 60 ml Report Signatures Amended by Jeferson Bernard DO on 10/27/2024 02:45 PM
[2024-10-26 16:00] VITALS: BP 104/59; PULSE 85; PULSE 86; RESP 20; TEMP 36.6; O2SAT 94
[2024-10-26 20:00] VITALS: PULSE 92
[2024-10-27] VITALS: BP 123/60; PULSE 85; PULSE 96; RESP 18; TEMP 36.5; O2SAT 92
[2024-10-27] MEDS: ceFAZolin 1 GM in SODIUM CHLORIDE 0.9% IV 50 ML 100 ML IVPB ×2 (01:00→09:37)
[2024-10-27 04:00] VITALS: PULSE 89
[2024-10-27] MEDS: HYDROcodone/acetaminophen (*CRX) 5-325 MG TABLET 1 TAB PO (05:17)
[2024-10-27 05:32] LABS: Hematocrit 46.4 % (40.0-54.0); Hemoglobin 14.6 g/dL (14.0-18.0); Immature Granulocyte Percent A 0.8 % (0.0-0.0); Lymphocytes Absolute Auto 1.09 K/mm3 (1.10-4.50); Mean Corpuscular HGB Conc 31.5 g/dL (32-36); Mean Corpuscular Hemoglobin 26.1 pg (27.0-31.0); Mean Corpuscular Volume 83.0 fL (78.0-102.0); Nucleated Red Blood Cells Absolute Auto 0.00 K/mm3 (0.00-0.00); Nucleated Red Blood Cells Perc 0.0 % (0-0.0); Platelet Count Result 221 K/mm3 (150-420); Red Blood Count 5.59 M/mm3 (4.70-6.10); White Blood Count 15.4 K/mm3 (4.8-10.8)
[2024-10-27 05:47] LABS: Alanine Aminotransferase 19 U/L (6-50); Albumin Level 2.4 g/dL (3.5-5.1); Alkaline Phosphatase 73 U/L (38-126); Anion Gap 2 mmol/L (4-12); Aspartate Amino Transferase 37 U/L (17-59); Bilirubin,Total 0.5 mg/dL (0.2-1.3); Blood Urea Nitrogen 21 mg/dL (9-20); Calcium 8.1 mg/dL (8.4-10.2); Carbon Dioxide 28 mmol/L (22-30); Chloride 105 mmol/L (98-107); Estimated CRCL calculation 69 ml/min; Estimated Glomerular Filt Rate > 60; Glucose 102 mg/dL (65-110); Magnesium 1.8 mg/dL (1.6-2.3); Osmolality Calculated 283 mOsm/kg (285-295); Potassium 4.0 mmol/L (3.4-5.0); Sodium 135 mmol/L (137-145); Total Protein 5.6 g/dL (6.3-8.2)
[2024-10-27 08:00] VITALS: BP 116/76; PULSE 85; RESP 18; TEMP 36.8; O2SAT 94
[2024-10-27] MEDS: LOSARTAN POTASSIUM 50 MG TABLET PO (09:42)
--- NOTE | 2024-10-27 10:02 | P.PN_ITS ---
Progress Note: A&P Assessment and Plan (1) Sepsis due to cellulitis: Code(s): L03.90 - Cellulitis, unspecified; A41.9 - Sepsis, unspecified organism Status: Acute Assessment and Plan: patient presented with cellulitis to bilateral lower extremities, leukocytosis, tachycardia with normal lactic acid no hypotension patient initially started on IV Zosyn in the ED, did receive IV fluids 2 L * switch patient to IV Zosyn and vancomycin pending cultures * blood cultures Pending * venous Dopplers to rule out any DVT * ordered echocardiogram do cardiomegaly but some concern of his previous drug use rule out any vegetation currently no cultures back but have to order echo early due to availability (2) Venous insufficiency: Code(s): I87.2 - Venous insufficiency (chronic) (peripheral) Status: Acute Assessment and Plan: patient appears to have some underlying venous insufficiency which he believes he has been diagnosed with before * encourage elevation when at rest * reports he was supposed to see a vascular /[facility] at another hospital outpatient (3) Hypertension: Code(s): I10 - Essential (primary) hypertension Status: Acute Assessment and Plan: patient with elevated blood pressures as high as 197/98 * started patient on losartan 50 mg since EDELMIRA improved * hydralazine p.r.n. 20 mg IVP systolics greater than 180 (4) EDELMIRA (acute kidney injury): Code(s): N17.9 - Acute kidney failure, unspecified Status: Acute Assessment and Plan: patient with acute kidney injury likely secondary to dehydration and heat exhaustion * received IV fluids 2 L in the ED * continued 100 mL/hour overnight discontinued now that patient is eating and drinking * creatinine 1.41 10/26 need to monitor closely if worsens need to switch BP medication potassium was 3.9 today * avoid nephrotoxic medications (5) Acute dehydration: Code(s): E86.0 - Dehydration Status: Resolved Assessment and Plan: SEE ABOVE #4 (6) Heat exhaustion: Qualifiers: Encounter type: initial encounter Qualified Code(s): T67.5XXA - Heat exhaustion, unspecified, initial encounter Code(s): T67.5XXA - Heat exhaustion, unspecified, initial encounter Status: Resolved Assessment and Plan: patient initially found to have 102.8 temperature after spinning well over 24 hours in a van in [place] unsure of temperature is related just to heat ex haustion also was found to have bilateral lower extremity cellulitis. patient was hydrated with IV fluids and cooled no further temperatures since admission (7) Cardiomegaly: Code(s): I51.7 - Cardiomegaly Status: Acute Assessment and Plan: CXR showing cardiomegaly and interstitial edema, BNP mildly elevated * discontinued IV fluids noted patient is tolerating oral intake * echocardiogram pending Plan Code status: Full code per patient DVT prophylaxis: Lovenox Stress ulcer prophylaxis: NA PT/OT notes: ambulatory Disposition: patient continues admission to the medical unit for sepsis secondary to bilateral extremity cellulitis, heat exhaustion with dehydration and acute kidney injury continue with IV antibiotics pending cultures. Unsure if patient will stay I recommended continued admission for IV antibiotics and to monitor blood cultures he understands the risks if he does decide to leave AMA. Subjective Date/time seen: 10/27/24 10:02 Interval history: Patient is in need of extensive IV antibioitic. Pt has informed me that he is not going to be able to stay. I have instructed patient if he leaves it will be against medical advice. Exam Const: General: no acute distress and well nourished Nutritional Appearance: well nourished Orientation/consciousness: patient oriented x3 Limitations: no limitations HENMT: Head: normal to inspection Ears: external ears normal Face/Nose/Sinus: Normal external nose present Eyes: Conjunctivae: conjunctivae normal Pupils: Equal, round and reactive pupils present EOM: EOMs intact bilaterally Neck: Neck: normal visual inspection and no meningeal signs Chest: Chest palpation & inspection: normal inspection of the chest Resp: Effort & Inspection: normal respiratory effort and not labored Auscultation: clear to auscultation bilaterally and no crackles Cardio: Rate: regular rate Rhythm: regular rhythm Heart sounds: no murmurs GI: Inspection: non-distended Auscultation: normal bowel sounds : General: Yes bladder normal to palpation and Yes no CVA tenderness Back/Spine/Pelvis: Back: no CVA tenderness Skin: General skin exam: No normal color Rashes: rash noted Wounds: no wounds Other: left inner thigh has an elongated inner thigh erythema/ rash of cellulitis; left lower extremity from the mid guevara down to the ankle has a erythema mostly circumferentially of cellulitis Neuro: General: patient oriented x3, moves all extremities, no meningeal signs, no focal motor deficits and CN's II-XI intact bilaterally Cranial nerves: Yes Equal, round and reactive pupils present and Yes Nystagmus not present Speech: normal speech Other: fast exam is negative, NIH score is 0, GCS is 15 Extrem: General: normal to inspection Psych: Mental Status: mental status grossly normal Affect: normal affect Attitude: cooperative Objective Data Vital Signs Vital Signs: Vital Signs - 24 hr 10/26/24 12:00 10/26/24 16:00 10/26/24 16:00 Temperature 97.9 F Pulse Rate 90 86 85 Respiratory Rate 20 Blood Pressure 104/59 L Pulse Oximetry 94 Oxygen Delivery Room Air 10/26/24 20:00 10/27/24 00:00 10/27/24 00:00 Temperature 97.7 F Pulse Rate 92 96 85 Respiratory Rate 18 Blood Pressure 123/60 Pulse Oximetry 92 Oxygen Delivery Room Air 10/27/24 04:00 10/27/24 08:00 10/27/24 08:00 Temperature 98.3 F Pulse Rate 89 85 85 Respiratory Rate 18 Blood Pressure 116/76 Pulse Oximetry 94 Oxygen Delivery Room Air Intake/Output Intake/Output: Intake & Output 10/24/24 10/25/24 10/26/24 10/27/24 23:59 23:59 23:59 23:59 Intake Total 2220 5350 70 Output Total 425 1000 575 Balance 1795 4350 -505 Meds/Results Medications: Active Medications Generic Name Dose Route Start Last Admin Trade Name Freq PRN Reason Stop Dose Admin Acetaminophen 650 mg 10/25/24 16:38 10/25/24 21:43 Acetaminophen 325 Mg Tablet PO 650 mg Q4H PRN Administration Mild Pain (1-3) or Fever Hydrocodone Bitart/Acetaminophen 1 tab 10/25/24 16:38 10/27/24 05:17 Hydrocodone/Acetaminophen (*Crx) 5-325 Mg Tablet PO 1 tab Q4H PRN Administration Moderate Pain (4-6) Enoxaparin Sodium 40 mg 10/26/24 09:00 10/27/24 09:43 Enoxaparin 40 Mg/0.4 Ml Syringe SUB-Q Not Given DAILY DEB Hydralazine HCl 20 mg 10/25/24 16:38 Hydralazine Hcl 20 Mg/Ml Vial IV PUSH Q6HR PRN hypertension Cefazolin Sodium 1 gm/ Sodium 50 mls @ 100 mls/hr 10/25/24 17:00 10/27/24 09:37 Chloride IVPB 100 mls/hr Q8H DEB Administration Vancomycin HCl 1,500 mg in 500 mls @ 250 mls/hr 10/26/24 11:00 10/26/24 12:53 Vancomycin 1,500 Mg/Ns 500 Ml IVPB Infused Q24H DEB Infusion Losartan Potassium 50 mg 10/25/24 16:45 10/27/24 09:42 Losartan Potassium 50 Mg Tablet PO 50 mg DAILY DEB Administration Ondansetron HCl 4 mg 10/25/24 16:38 Ondansetron Inj 4 Mg/2 Ml Vial IV PUSH Q6H PRN Nausea And Vomiting Perflutren Lipid Microsphere 0 ml 10/26/24 08:43 Perflutren Lipid Microspheres 1.5 Ml Vial Diluted To 10 Ml Total Volume IV PUSH 10/29/24 08:43 ONCE PRN adequate visualization Protocol Trazodone HCl 50 mg 10/25/24 16:44 Trazodone Hcl 50 Mg Tablet PO HS PRN Insomnia Radiology Results: ITS Impressions Chest X-Ray 10/25/24 13:07 Impression: 1: Cardiomegaly with mild interstitial edema. Head CT 10/25/24 13:11 IMPRESSION: 1. No acute intracranial abnormality. Limited study. Venous Doppler Study 10/26/24 11:56 IMPRESSION: 1: No lower extremity deep venous thrombosis. Labs Labs: Laboratory Results - last 24 hr 10/25/24 10/27/24 12:55 05:16 WBC 15.4 H RBC 5.59 Hgb 14.6 Hct 46.4 MCV 83.0 MCH 26.1 L MCHC 31.5 L RDW 15.3 H Plt Count 221 MPV 10.4 Immature Gran % (Auto) 0.8 H Neut % (Auto) 81.1 H Lymph % (Auto) 7.1 L [place] % (Auto) 10.6 Eos % (Auto) 0.1 L Baso % (Auto) 0.3 Lymph # (Auto) 1.09 L [place] # (Auto) 1.63 H Eos # (Auto) 0.01 L Baso # (Auto) 0.05 Abs Immat Gran (auto) 0.12 H Absolute Neuts (auto) 12.51 H Absolute Nucleated RBC 0.00 Nucleated RBC % 0.0 Sodium 139 135 L Potassium 4.0 4.0 Chloride 104 105 Carbon Dioxide 27 28 Anion Gap 8 2 L BUN 36 H 21 H Creatinine 1.93 H 1.07 Estim Creat Clear Calc 69 Estimated GFR 35 L > 60 Glucose 136 H 102 Calculated Osmolality 298 H 283 L Calcium 8.9 8.1 L Magnesium 1.8 Total Bilirubin 0.6 0.5 AST 59 37 ALT 29 19 Alkaline Phosphatase 93 73 Troponin I 0.026 Total Protein 8.8 H 5.6 L Albumin 4.0 2.4 L
[2024-10-27] MEDS: VANCOMYCIN 1,500 MG/NS 500 ML 1,500 MG/500 ML BAG 250 MG IVPB (10:11)
[2024-10-27] MEDS: CALCIUM CARBONATE (TUMS) 500 MG (200 MG ELEMENTAL) PO (11:12)
[2024-10-27 12:00] VITALS: PULSE 88
[2024-10-27 16:00] VITALS: BP 123/86; PULSE 86; PULSE 89; RESP 18; O2SAT 94
[2024-10-27] MEDS: cefTRIAXone 2 GM in SODIUM CHLORIDE 0.9% IV 100 ML 200 ML IVPB (16:54)
[2024-10-27] MEDS: SACCHAROMYCES BOULARDII 250 MG CAPSULE PO (16:58)
[2024-10-27 20:20] VITALS: BP 111/71; PULSE 85; RESP 18; TEMP 36.7; O2SAT 93
[2024-10-28] VITALS: BP 147/86; PULSE 86; RESP 20; TEMP 36.8; O2SAT 94
[2024-10-28 05:27] LABS: Hematocrit 43.2 % (40.0-54.0); Hemoglobin 13.9 g/dL (14.0-18.0); Immature Granulocyte Percent A 1.3 % (0.0-0.0); Lymphocytes Absolute Auto 1.61 K/mm3 (1.10-4.50); Mean Corpuscular HGB Conc 32.2 g/dL (32-36); Mean Corpuscular Hemoglobin 26.1 pg (27.0-31.0); Mean Corpuscular Volume 81.2 fL (78.0-102.0); Nucleated Red Blood Cells Absolute Auto 0.00 K/mm3 (0.00-0.00); Nucleated Red Blood Cells Perc 0.0 % (0-0.0); Platelet Count Result 254 K/mm3 (150-420); Red Blood Count 5.32 M/mm3 (4.70-6.10); White Blood Count 16.4 K/mm3 (4.8-10.8)
[2024-10-28 05:39] LABS: Alanine Aminotransferase 19 U/L (6-50); Albumin Level 2.5 g/dL (3.5-5.1); Alkaline Phosphatase 82 U/L (38-126); Anion Gap 3 mmol/L (4-12); Aspartate Amino Transferase 32 U/L (17-59); Bilirubin,Total 0.4 mg/dL (0.2-1.3); Blood Urea Nitrogen 19 mg/dL (9-20); Calcium 7.9 mg/dL (8.4-10.2); Carbon Dioxide 27 mmol/L (22-30); Chloride 103 mmol/L (98-107); Estimated CRCL calculation 77 ml/min; Estimated Glomerular Filt Rate > 60; Glucose 114 mg/dL (65-110); Magnesium 1.7 mg/dL (1.6-2.3); Osmolality Calculated 279 mOsm/kg (285-295); Potassium 3.8 mmol/L (3.4-5.0); Sodium 133 mmol/L (137-145); Total Protein 6.0 g/dL (6.3-8.2)
[2024-10-28 08:00] VITALS: BP 138/72; PULSE 78; RESP 20; TEMP 36.6; O2SAT 96
[2024-10-28] MEDS: HYDROcodone/acetaminophen (*CRX) 5-325 MG TABLET 1 TAB PO (09:31)
[2024-10-28] MEDS: SACCHAROMYCES BOULARDII 250 MG CAPSULE PO ×3 (09:32→16:18)
[2024-10-28] MEDS: LOSARTAN POTASSIUM 50 MG TABLET PO (09:33)
--- NOTE | 2024-10-28 10:15 | P.PNIM_ITS ---
Progress Note: A&P Assessment and Plan (1) Sepsis due to cellulitis: Code(s): L03.90 - Cellulitis, unspecified; A41.9 - Sepsis, unspecified organism Status: Acute Assessment and Plan: patient presented with cellulitis to bilateral lower extremities, leukocytosis, tachycardia with normal lactic acid no hypotension patient initially started on IV Zosyn in the ED, did receive IV fluids 2 L * switch patient to IV Zosyn and vancomycin pending cultures * blood cultures Pending * venous Dopplers to rule out any DVT * ordered echocardiogram do cardiomegaly but some concern of his previous drug use rule out any vegetation currently no cultures back but have to order echo early due to availability 10/28: Rocephin 2 gm IV daily with Group G Streptococcus in both sets of blood cultures Plan to keep on IV antibiotics up to 10 days of therapy but if patient leaves AMA he should get amoxicillin 1 gm TID for total 10 days of treatment per Gee (2) Venous insufficiency: Code(s): I87.2 - Venous insufficiency (chronic) (peripheral) Status: Acute Assessment and Plan: patient appears to have some underlying venous insufficiency which he believes he has been diagnosed with before * encourage elevation when at rest * reports he was supposed to see a vascular /nutrition teacher at another hospital outpatient 10/28: Left leg with diffuse swelling, venous duplex negative Wound noted dorsum of left foot which is likely source of blood stream infection (3) Hypertension: Code(s): I10 - Essential (primary) hypertension Status: Acute Assessment and Plan: patient with elevated blood pressures as high as 197/98 * started patient on losartan 50 mg since EDELMIRA improved * hydralazine p.r.n. 20 mg IVP systolics greater than 180 10/28: Blood pressure reviewed and no immediate intervention needed (4) EDELMIRA (acute kidney injury): Code(s): N17.9 - Acute kidney failure, unspecified Status: Acute Assessment and Plan: patient with acute kidney injury likely secondary to dehydration and heat exhaustion * received IV fluids 2 L in the ED * continued 100 mL/hour overnight discontinued now that patient is eating and drinking * creatinine 1.41 10/26 need to monitor closely if worsens need to switch BP medication potassium was 3.9 today * avoid nephrotoxic medications 10/28: Continued improvement in renal function (5) Acute dehydration: Code(s): E86.0 - Dehydration Status: Resolved Assessment and Plan: SEE ABOVE #4 10/28: Resolved (6) Heat exhaustion: Qualifiers: Encounter type: initial encounter Qualified Code(s): T67.5XXA - Heat exhaustion, unspecified, initial encounter Code(s): T67.5XXA - Heat exhaustion, unspecified, initial encounter Status: Resolved Assessment and Plan: patient initially found to have 102.8 temperature after spinning well over 24 hours in a van in [place] unsure of temperature is related just to heat exhaustion also was found to have bilateral lower extremity cellulitis. patient was hydrated with IV fluids and cooled no further temperatures since admission 10/28: Resolved (7) Cardiomegaly: Code(s): I51.7 - Cardiomegaly Status: Acute Assessment and Plan: CXR showing cardiomegaly and interstitial edema, BNP mildly elevated * discontinued IV fluids noted patient is tolerating oral intake * echocardiogram pending 10/28: Stable, no vegetation on heart valve noted on TTE, may need transfer for AB if repeat blood cultures from today remain positive Plan Code status: Full code per patient DVT prophylaxis: Lovenox--Patient refusing, SCD contraindicated Stress ulcer prophylaxis: NA PT/OT notes: Ordered formal eval on 10/28 Disposition: patient continues admission to the medical unit for sepsis secondary to bilateral extremity cellulitis, heat exhaustion with dehydration and acute kidney injury continue with IV antibiotics pending cultures. Unsure if patient will stay. I recommended continued admission for IV antibiotics and to monitor blood cultures he understands the risks if he does decide to leave AMA. Time Spent With Patient Time with patient: Greater than 35 minutes (total 80 minutes spent on this patient encounter) Subjective Date/time seen: 10/28/24 10:15 Interval history: Patient admitted for Cellulitis of legs/feet and initial blood cultures from ER visit have returned positive with Group G Streptococcus. Antibiotics changed yesterday to Rocephin 2 grams every 24 hours. Additional labs ordered today which show elevated inflammatory markers and elevated procalcitonin. Lactic acid remains elevated as well, will recheck in the morning. Patient having weakness and inability to get up on his own or ambulate on his own. Patient complaining of left hamstring pain up into low back as well as neck stiffness/spasms. Patient with chin to chest due to pain. He stated he wishes he could go get a chiropractic adjustment with Dr. Orlando across [facility]. Patient has been threatening to leave AMA each day. He was admitted with concern for heat exhaustion and EDELMIRA as well as infection. Ordered repeat blood cultures due to gram positive bacteremia. Spoke with Gee Larios, [place] Pharmacist, who stated based on cultures-if patient does leave AMA or has negative repeat cultures he can be placed on High Dose amoxicillin of 1 gm TID for total 10 days of treatment. Review of Systems Review of Systems: All systems reviewed & are unremarkable except as noted in HPI and below Exam Const: General: no acute distress and well nourished Nutritional Appearance: well nourished Orientation/consciousness: patient oriented x3 Limitations: no limitations HENMT: Head: normal to inspection Ears: external ears normal Face /Nose/Sinus: Normal external nose present Eyes: Conjunctivae: conjunctivae normal Pupils: Equal, round and reactive pupils present EOM: EOMs intact bilaterally Neck: Neck: no meningeal signs Other: Kyphotic appearing chin to chest at rest with muscle spasms noted Chest: Chest palpation & inspection: normal inspection of the chest Resp: Effort & Inspection: normal respiratory effort and not labored Auscultation: clear to auscultation bilaterally and no crackles Cardio: Rate: regular rate Rhythm: regular rhythm GI: Inspection: non-distended Auscultation: normal bowel sounds : General: Yes bladder normal to palpation and Yes no CVA tenderness Back/Spine/Pelvis: Back: no CVA tenderness Skin: General skin exam: No normal color Rashes: rash noted Wounds: wounds noted ulceration left dorsal foot with surrounding erythema, maceration right lateral foot drainage (dried yellow/brown color) and with surrounding erythema Other: left inner thigh has an elongated inner thigh erythema/ rash of cellulitis; left lower extremity from the mid guevara down to the ankle has a erythema mostly circumferentially of cellulitis Neuro: General: patient oriented x3, moves all extremities, no meningeal signs, no focal motor deficits and CN's II-XI intact bilaterally Cranial nerves: Yes Equal, round and reactive pupils present and Yes Nystagmus not present Speech: normal speech Extrem: General: edema (entire left leg swollen) left Psych: Mental Status: mental status grossly normal Affect: normal affect Other: threatening to leave AMA every day Objective Data Vital Signs Vital Signs: Vital Signs - 24 hr 10/27/24 12:00 10/27/24 16:00 10/27/24 16:00 Temperature Pulse Rate 88 86 89 Respiratory Rate 18 Blood Pressure 123/86 Pulse Oximetry 94 Oxygen Delivery Room Air 10/27/24 20:20 10/27/24 20:20 10/28/24 00:00 Temperature 36.7 C 36.8 C Pulse Rate 85 85 86 Respiratory Rate 18 18 20 Blood Pressure 111/71 147/86 H Pulse Oximetry 93 93 94 Oxygen Delivery Room Air Room Air Room Air 10/28/24 08:00 Temperature 36.6 C Pulse Rate 78 Respiratory Rate 20 Blood Pressure 138/72 Pulse Oximetry 96 Oxygen Delivery Room Air Intake/Output Intake/Output: Intake & Output 10/25/24 10/26/24 10/27/24 10/28/24 23:59 23:59 23:59 23:59 Intake Total 2220 5350 2040 600 Output Total 425 1000 1775 750 Balance 1795 4350 265 -150 Meds/Results Medications: Active Medications Generic Name Dose Route Start Last Admin Trade Name Freq PRN Reason Stop Dose Admin Acetaminophen 650 mg 10/25/24 16:38 10/25/24 21:43 Acetaminophen 325 Mg Tablet PO 650 mg Q4H PRN Administration Mild Pain (1-3) or Fever Hydrocodone Bitart/Acetaminophen 1 tab 10/25/24 16:38 10/28/24 09:31 Hydrocodone/Acetaminophen (*Crx) 5-325 Mg Tablet PO 1 tab Q4H PRN Administration Moderate Pain (4-6) Calcium Carbonate 200 mg 10/27/24 10:58 10/27/24 11:12 Calcium Carbonate (Tums) 500 Mg (200 Mg Elemental) PO 200 mg Q6H PRN Administration Indigestion Enoxaparin Sodium 40 mg 10/26/24 09:00 10/28/24 09:33 Enoxaparin 40 Mg/0.4 Ml Syringe SUB-Q Not Given DAILY DEB Hydralazine HCl 20 mg 10/25/24 16:38 Hydralazine Hcl 20 Mg/Ml Vial IV PUSH Q6HR PRN hypertension Ceftriaxone Sodium 2 gm/ 100 mls @ 200 mls/hr 10/27/24 16:00 10/27/24 16:54 Sodium Chloride IVPB 200 mls/hr Q24H DEB Administration Losartan Potassium 50 mg 10/25/24 16:45 10/28/24 09:33 Losartan Potassium 50 Mg Tablet PO 50 mg DAILY DEB Administration Methocarbamol 750 mg 10/28/24 10:00 Methocarbamol 750 Mg Tablet PO QID PRN muscle cramp/spams Ondansetron HCl 4 mg 10/25/24 16:38 Ondansetron Inj 4 Mg/2 Ml Vial IV PUSH Q6H PRN Nausea And Vomiting Perflutren Lipid Microsphere 0 ml 10/26/24 08:43 Perflutren Lipid Microspheres 1.5 Ml Vial Diluted To 10 Ml Total Volume IV PUSH 10/29/24 08:43 ONCE PRN adequate visualization Protocol Saccharomyces Boulardii 250 mg 10/27/24 17:00 10/28/24 09:32 Saccharomyces Boulardii 250 Mg Capsule PO 250 mg TID DEB Administration Trazodone HCl 50 mg 10/25/24 16:44 Trazodone Hcl 50 Mg Tablet PO HS PRN Insomnia Radiology Results: ITS Impressions Chest X-Ray 10/25/24 13:07 Impression: 1: Cardiomegaly with mild interstitial edema. Head CT 10/25/24 13:11 IMPRESSION: 1. No acute intracranial abnormality. Limited study. Venous Doppler Study 10/26/24 11:56 IMPRESSION: 1: No lower extremity deep venous thrombosis. Labs Labs: Laboratory Results - last 24 hr 10/28/24 05:07 WBC 16.4 H RBC 5.32 Hgb 13.9 L Hct 43.2 MCV 81.2 MCH 26.1 L MCHC 32.2 RDW 15.2 H Plt Count 254 MPV 10.5 Immature Gran % (Auto) 1.3 H Neut % (Auto) 77.6 H Lymph % (Auto) 9.8 L [place] % (Auto) 10.9 Eos % (Auto) 0.1 L Baso % (Auto) 0.3 Lymph # (Auto) 1.61 [place] # (Auto) 1.78 H Eos # (Auto) 0.02 Baso # (Auto) 0.05 Abs Immat Gran (auto) 0.22 H Absolute Neuts (auto) 12.67 H Absolute Nucleated RBC 0.00 Nucleated RBC % 0.0 Sodium 133 L Potassium 3.8 Chloride 103 Carbon Dioxide 27 Anion Gap 3 L BUN 19 Creatinine 0.95 Estim Creat Clear Calc 77 Estimated GFR > 60 Glucose 114 H Calculated Osmolality 279 L Calcium 7.9 L Magnesium 1.7 Total Bilirubin 0.4 AST 32 ALT 19 Alkaline Phosphatase 82 Total Protein 6.0 L Albumin 2.5 L Imaging Radiologist's impression: EXAMINATION:US venous doppler LE BI INDICATION:Bilateral venous stasis TECHNIQUE: Multiple grayscale, color flow and Doppler images of the right and left lower extremity deep venous systems were obtained and reviewed. COMPARISON:No prior studies for comparison. FINDINGS: The common femoral, superficial femoral and popliteal veins demonstrate normal respiratory variation, augmentation and compressibility. Color flow is also seen within the posterior tibial, peroneal, greater saphenous and profunda veins. IMPRESSION: 1: No lower extremity deep venous thrombosis. Reviewed, dictated and finalized at location A. Pulse Oximetry SpO2 results: 93-96% on room air Attestation: I personally reviewed and interpreted this pulse oximetry as follows: Interpretation: No need for supplemental oxygenation at this time Quality VTE Prophylaxis VTE prophylaxis: pharmacologic ordered Hospitalist MIPS Advance Care Plan I have confirmed that the patient's Advanced Care Plan is present, code status is documented, or surrogate decision maker is listed in patient medical record.: Yes Medication Reconciliation I have utilized all available resources to obtain, update and review the patients current medications (includes all prescriptions, OTC, herbals, cannabis, and nutritional supplements).: Yes
[2024-10-28 11:03] LABS: CRP > 9.0 mg/dL (<1.0)
[2024-10-28 11:08] LABS: NT Pro B Type Natriuretic Pept 472 pg/mL (19.9-100)
[2024-10-28 11:19] LABS: Procalcitonin 1.7 ng/mL
--- NOTE | 2024-10-28 12:13 | PC.NURSE ---
Order for Echo discontinued per [employer] CLASSIFIED ADVERTISING SUPERVISOR. [employer] order still active, request to discontinue this order. Per [employer] CLASSIFIED ADVERTISING SUPERVISOR, OK
[2024-10-28 16:00] VITALS: BP 128/74; PULSE 74; RESP 20; TEMP 36.9; O2SAT 95
[2024-10-28] MEDS: cefTRIAXone 2 GM in SODIUM CHLORIDE 0.9% IV 100 ML 200 ML IVPB (16:16)
[2024-10-28 20:00] VITALS: PULSE 70; RESP 20; O2SAT 96
[2024-10-29] VITALS: BP 130/79; PULSE 84; RESP 18; TEMP 36.2; O2SAT 98
[2024-10-29 05:19] LABS: Hematocrit 43.9 % (40.0-54.0); Hemoglobin 14.1 g/dL (14.0-18.0); Immature Granulocyte Percent A 2.7 % (0.0-0.0); Lymphocytes Absolute Auto 2.31 K/mm3 (1.10-4.50); Mean Corpuscular HGB Conc 32.1 g/dL (32-36); Mean Corpuscular Hemoglobin 26.1 pg (27.0-31.0); Mean Corpuscular Volume 81.1 fL (78.0-102.0); Nucleated Red Blood Cells Absolute Auto 0.00 K/mm3 (0.00-0.00); Nucleated Red Blood Cells Perc 0.0 % (0-0.0); Platelet Count Result 307 K/mm3 (150-420); Red Blood Count 5.41 M/mm3 (4.70-6.10); White Blood Count 16.9 K/mm3 (4.8-10.8)
[2024-10-29 05:31] LABS: Alanine Aminotransferase 25 U/L (6-50); Albumin Level 2.7 g/dL (3.5-5.1); Alkaline Phosphatase 90 U/L (38-126); Anion Gap 1 mmol/L (4-12); Aspartate Amino Transferase 39 U/L (17-59); Bilirubin,Total 0.4 mg/dL (0.2-1.3); Blood Urea Nitrogen 18 mg/dL (9-20); Calcium 8.1 mg/dL (8.4-10.2); Carbon Dioxide 29 mmol/L (22-30); Chloride 101 mmol/L (98-107); Estimated CRCL calculation 84 ml/min; Estimated Glomerular Filt Rate > 60; Glucose 107 mg/dL (65-110); Magnesium 1.7 mg/dL (1.6-2.3); Osmolality Calculated 273 mOsm/kg (285-295); Potassium 3.9 mmol/L (3.4-5.0); Sodium 131 mmol/L (137-145); Total Protein 6.4 g/dL (6.3-8.2)
[2024-10-29 08:00] VITALS: BP 128/74; PULSE 80; RESP 20; TEMP 36.6; O2SAT 96
[2024-10-29] MEDS: SACCHAROMYCES BOULARDII 250 MG CAPSULE PO ×3 (08:41→16:31)
[2024-10-29] MEDS: LOSARTAN POTASSIUM 50 MG TABLET PO (08:41)
--- NOTE | 2024-10-29 09:30 | P.PN_ITS ---
Progress Note: A&P Assessment and Plan (1) Sepsis due to cellulitis: Code(s): L03.90 - Cellulitis, unspecified; A41.9 - Sepsis, unspecified organism Status: Acute Assessment and Plan: patient presented with cellulitis to bilateral lower extremities, leukocytosis, tachycardia with normal lactic acid no hypotension patient initially started on IV Zosyn in the ED, did receive IV fluids 2 L * switch patient to IV Zosyn and vancomycin pending cultures * blood cultures Pending * venous Dopplers to rule out any DVT * ordered echocardiogram do cardiomegaly but some concern of his previous drug use rule out any vegetation currently no cultures back but have to order echo early due to availability (2) Venous insufficiency: Code(s): I87.2 - Venous insufficiency (chronic) (peripheral) Status: Acute Assessment and Plan: patient appears to have some underlying venous insufficiency which he believes he has been diagnosed with before * encourage elevation when at rest * reports he was supposed to see a vascular /alum plant supervisor at another hospital outpatient (3) Hypertension: Code(s): I10 - Essential (primary) hypertension Status: Acute Assessment and Plan: patient with elevated blood pressures as high as 197/98 * started patient on losartan 50 mg since EDELMIRA improved * hydralazine p.r.n. 20 mg IVP systolics greater than 180 (4) EDELMIRA (acute kidney injury): Code(s): N17.9 - Acute kidney failure, unspecified Status: Acute Assessment and Plan: patient with acute kidney injury likely secondary to dehydration and heat exhaustion * received IV fluids 2 L in the ED * continued 100 mL/hour overnight discontinued now that patient is eating and drinking * creatinine 1.41 10/26 need to monitor closely if worsens need to switch BP medication potassium was 3.9 today * avoid nephrotoxic medications (5) Acute dehydration: Code(s): E86.0 - Dehydration Status: Resolved Assessment and Plan: SEE ABOVE #4 (6) Heat exhaustion: Qualifiers: Encounter type: initial encounter Qualified Code(s): T67.5XXA - Heat exhaustion, unspecified, initial encounter Code(s): T67.5XXA - Heat exhaustion, unspecified, initial encounter Status: Resolved Assessment and Plan: patient initially found to have 102.8 temperature after spinning well over 24 hours in a van [place] unsure of temperature is related just to heat ex haustion also was found to have bilateral lower extremity cellulitis. patient was hydrated with IV fluids and cooled no further temperatures since admission (7) Cardiomegaly: Code(s): I51.7 - Cardiomegaly Status: Acute Assessment and Plan: CXR showing cardiomegaly and interstitial edema, BNP mildly elevated * discontinued IV fluids noted patient is tolerating oral intake * echocardiogram pending Plan Code status: Full code per patient DVT prophylaxis: Lovenox Stress ulcer prophylaxis: NA PT/OT notes: ambulatory Disposition: patient continues admission to the medical unit for sepsis secondary to bilateral extremity cellulitis, heat exhaustion with dehydration and acute kidney injury continue with IV antibiotics pending cultures. Unsure if patient will stay I recommended continued admission for IV antibiotics and to monitor blood cultures he understands the risks if he does decide to leave A. Subjective Date/time seen: 10/29/24 09:30 Interval history: patient in recliner he has concern of really wanting to smoke. foot is looking better but patient continues to need IV antibiotic blood cultures are still pending. Exam Const: General: no acute distress and well nourished Nutritional Appearance: well nourished Orientation/consciousness: patient oriented x3 Limitations: no limitations HENMT: Head: normal to inspection Ears: external ears normal Face/Nose/Sinus: Normal external nose present Eyes: Conjunctivae: conjunctivae normal Pupils: Equal, round and reactive pupils present EOM: EOMs intact bilaterally Neck: Neck: normal visual inspection and no meningeal signs Chest: Chest palpation & inspection: normal inspection of the chest Resp: Effort & Inspection: normal respiratory effort and not labored Auscultation: clear to auscultation bilaterally and no crackles Cardio: Rate: regular rate Rhythm: regular rhythm Heart sounds: no murmurs GI: Inspection: non-distended Auscultation: normal bowel sounds Back/Spine/Pelvis: Back: no CVA tenderness Skin: General skin exam: No normal color and wounds noted Rashes: rash noted Wounds: no wounds and wounds noted ulceration left dorsal foot with surrounding erythema, maceration right lateral foot drainage (dried yellow/brown color) and with surrounding erythema Other: left inner thigh has an elongated inner thigh erythema/ rash of cellulitis; left lower extremity from the mid guevara down to the ankle has a erythema mostly circumferentially of cellulitis Neuro: General: patient oriented x3, moves all extremities, no meningeal signs, no focal motor deficits and CN's II-XI intact bilaterally Cranial ne rves: Yes Equal, round and reactive pupils present and Yes Nystagmus not present Speech: normal speech Other: fast exam is negative, NIH score is 0, GCS is 15 Extrem: General: normal to inspection and edema (entire left leg swollen) left Psych: Mental Status: mental status grossly normal Affect: normal affect Attitude: cooperative Other: threatening to leave AMA every day Objective Data Vital Signs Vital Signs: Vital Signs - 24 hr 10/28/24 16:00 10/28/24 20:00 10/29/24 00:00 Temperature 98.4 F 97.2 F L Pulse Rate 74 70 84 Respiratory Rate 20 20 18 Blood Pressure 128/74 130/79 Pulse Oximetry 95 96 98 Oxygen Delivery Room Air Room Air 10/29/24 08:00 Temperature 98 F Pulse Rate 80 Respiratory Rate 20 Blood Pressure 128/74 Pulse Oximetry 96 Oxygen Delivery Room Air Intake/Output Intake/Output: Intake & Output 10/26/24 10/27/24 10/28/24 10/29/24 23:59 23:59 23:59 23:59 Intake Total 5350 2640 2020 400 Output Total 1000 1775 1850 500 Balance 4350 865 170 -100 Meds/Results Medications: Active Medications Generic Name Dose Route Start Last Admin Trade Name Freq PRN Reason Stop Dose Admin Acetaminophen 650 mg 10/25/24 16:38 10/25/24 21:43 Acetaminophen 325 Mg Tablet PO 650 mg Q4H PRN Administration Mild Pain (1-3) or Fever Hydrocodone Bitart/Acetaminophen 1 tab 10/25/24 16:38 10/28/24 09:31 Hydrocodone/Acetaminophen (*Crx) 5-325 Mg Tablet PO 1 tab Q4H PRN Administration Moderate Pain (4-6) Calcium Carbonate 200 mg 10/27/24 10:58 10/27/24 11:12 Calcium Carbonate (Tums) 500 Mg (200 Mg Elemental) PO 200 mg Q6H PRN Administration Indigestion Enoxaparin Sodium 40 mg 10/26/24 09:00 10/29/24 08:45 Enoxaparin 40 Mg/0.4 Ml Syringe SUB-Q Not Given DAILY DEB Hydralazine HCl 20 mg 10/25/24 16:38 Hydralazine Hcl 20 Mg/Ml Vial IV PUSH Q6HR PRN hypertension Ceftriaxone Sodium 2 gm/ 100 mls @ 200 mls/hr 10/27/24 16:00 10/28/24 16:50 Sodium Chloride IVPB Infused Q24H DEB Infusion Losartan Potassium 50 mg 10/25/24 16:45 10/29/24 08:41 Losartan Potassium 50 Mg Tablet PO 50 mg DAILY DEB Administration Methocarbamol 750 mg 10/28/24 10:00 10/29/24 08:41 Methocarbamol 750 Mg Tablet PO 750 mg QID PRN Administration muscle cramp/spams Ondansetron HCl 4 mg 10/25/24 16:38 Ondansetron Inj 4 Mg/2 Ml Vial IV PUSH Q6H PRN Nausea And Vomiting Saccharomyces Boulardii 250 mg 10/27/24 17:00 10/29/24 08:41 Saccharomyces Boulardii 250 Mg Capsule PO 250 mg TID DEB Administration Trazodone HCl 50 mg 10/25/24 16:44 Trazodone Hcl 50 Mg Tablet PO HS PRN Insomnia Radiology Results: ITS Impressions Chest X-Ray 10/25/24 13:07 Impression: 1: Cardiomegaly with mild interstitial edema. Head CT 10/25/24 13:11 IMPRESSION: 1. No acute intracranial abnormality. Limited study. Venous Doppler Study 10/26/24 11:56 IMPRESSION: 1: No lower extremity deep venous thrombosis. Labs Labs: Laboratory Results - last 24 hr 10/28/24 10/29/24 10:24 05:14 WBC 16.9 H RBC 5.41 Hgb 14.1 Hct 43.9 MCV 81.1 MCH 26.1 L MCHC 32.1 RDW 14.8 H Plt Count 307 MPV 10.0 Immature Gran % (Auto) 2.7 H Neut % (Auto) 71.4 H Lymph % (Auto) 13.7 L [place] % (Auto) 11.1 H Eos % (Auto) 0.5 L Baso % (Auto) 0.6 Lymph # (Auto) 2.31 [place] # (Auto) 1.87 H Eos # (Auto) 0.08 Baso # (Auto) 0.10 Abs Immat Gran (auto) 0.45 H Absolute Neuts (auto) 12.08 H Absolute Nucleated RBC 0.00 Nucleated RBC % 0.0 ESR 23 H Sodium 131 L Potassium 3.9 Chloride 101 Carbon Dioxide 29 Anion Gap 1 L BUN 18 Creatinine 0.86 Estim Creat Clear Calc 84 Estimated GFR > 60 Glucose 107 Calculated Osmolality 273 L Lactic Acid 2.8 H Calcium 8.1 L Magnesium 1.7 Total Bilirubin 0.4 AST 39 ALT 25 Alkaline Phosphatase 90 C-Reactive Protein > 9.0 H NT-Pro-B Natriuret Pep 472 H Total Protein 6.4 Albumin 2.7 L Procalcitonin 1.7
[2024-10-29 16:00] VITALS: BP 138/72; PULSE 78; RESP 20; TEMP 36.6; O2SAT 93
[2024-10-29] MEDS: cefTRIAXone 2 GM in SODIUM CHLORIDE 0.9% IV 100 ML 200 ML IVPB (16:31)
--- NOTE | 2024-10-29 21:47 | PC.NURSE ---
Patient in bed with HOB up, sleeping with head tilted down chin to chest. SR up x2, call light and belongings with reach. Dinner tray still in room, patient refuses to let nurse removed. IV site intact, no drainage observed.
[2024-10-29] MEDS: ACETAMINOPHEN 325 MG TABLET 650 MG PO (22:25)
--- NOTE | 2024-10-29 22:37 | PC.NURSE ---
Patient awake and talkative. Patient ready for dinner and a soda. C/o neck and back pain, prn pain medications given and pillows used to make patient comfortable.
[2024-10-30] VITALS: BP 135/88; PULSE 78; RESP 20; TEMP 36.3; O2SAT 92
--- NOTE | 2024-10-30 00:15 | PC.NURSE ---
Pt dozing quietly in bed and no signs of discomfort noted.
--- NOTE | 2024-10-30 02:00 | PC.NURSE ---
650 mls of clear, yellow urine emptied from the urinal.
--- NOTE | 2024-10-30 04:25 | PC.NURSE ---
325 mls of clear, yellow urine emptied from the urinal. Pt was given ice cream and a popsicle per his request.
--- NOTE | 2024-10-30 06:00 | PC.NURSE ---
300 mls of clear, yellow urine emptied from the urinal.
[2024-10-30 06:19] LABS: Hematocrit 43.2 % (40.0-54.0); Hemoglobin 14.0 g/dL (14.0-18.0); Immature Granulocyte Percent A 5.6 % (0.0-0.0); Lymphocytes Absolute Auto 2.46 K/mm3 (1.10-4.50); Mean Corpuscular HGB Conc 32.4 g/dL (32-36); Mean Corpuscular Hemoglobin 26.3 pg (27.0-31.0); Mean Corpuscular Volume 81.1 fL (78.0-102.0); Nucleated Red Blood Cells Absolute Auto 0.00 K/mm3 (0.00-0.00); Nucleated Red Blood Cells Perc 0.0 % (0-0.0); Platelet Count Result 410 K/mm3 (150-420); Red Blood Count 5.33 M/mm3 (4.70-6.10); White Blood Count 16.0 K/mm3 (4.8-10.8)
--- NOTE | 2024-10-30 07:27 | P.PNIM_ITS ---
Progress Note: A&P Assessment and Plan (1) Sepsis due to cellulitis: Code(s): L03.90 - Cellulitis, unspecified; A41.9 - Sepsis, unspecified organism Status: Acute Assessment and Plan: patient presented with cellulitis to bilateral lower extremities, leukocytosis, tachycardia with normal lactic acid no hypotension patient initially started on IV Zosyn in the ED, did receive IV fluids 2 L * switch patient to IV Zosyn and vancomycin pending cultures * blood cultures Pending * venous Dopplers to rule out any DVT * ordered echocardiogram do cardiomegaly completed (2) Venous insufficiency: Code(s): I87.2 - Venous insufficiency (chronic) (peripheral) Status: Acute Assessment and Plan: patient appears to have some underlying venous insufficiency which he believes he has been diagnosed with before * encourage elevation when at rest * reports he was supposed to see a vascular /manufacturing worker at another hospital outpatient (3) Hypertension: Code(s): I10 - Essential (primary) hypertension Status: Acute Assessment and Plan: patient with elevated blood pressures as high as 197/98 * started patient on losartan 50 mg since EDELMIRA improved * hydralazine p.r.n. 20 mg IVP systolics greater than 180 (4) EDELMIRA (acute kidney injury): Code(s): N17.9 - Acute kidney failure, unspecified Status: Acute Assessment and Plan: patient with acute kidney injury likely secondary to dehydration and heat exhaustion * received IV fluids 2 L in the ED * continued 100 mL/hour overnight discontinued now that patient is eating and drinking * creatinine 1.41 10/26 need to monitor closely if worsens need to switch BP medication potassium was 3.9 today * avoid nephrotoxic medications (5) Acute dehydration: Code(s): E86.0 - Dehydration Status: Resolved Assessment and Plan: SEE ABOVE #4 (6) Heat exhaustion: Qualifiers: Encounter type: initial encounter Qualified Code(s): T67.5XXA - Heat exhaustion, unspecified, initial encounter Code(s): T67.5XXA - Heat exhaustion, unspecified, initial encounter Status: Resolved Assessment and Plan: patient initially found to have 102.8 temperature after spinning well over 24 hours in a van in [place] unsure of temperature is related just to heat exhaustion also was found to have bilateral lower extremity cellulitis. patient was hydrated with IV fluids and cooled no further temperatures since admission (7) Cardiomegaly: Code(s): I51.7 - Cardiomegaly Status: Acute Assessment and Plan: CXR showing cardiomegaly and interstitial edema, BNP mildly elevated * discontinued IV fluids noted patient is tolerating oral intake * echocardiogram pending Plan Code status: Full code per patient DVT prophylaxis: Lovenox Stress ulcer prophylaxis: NA PT/OT notes: ambulatory Disposition: patient continues admission to the medical unit for sepsis secondary to bilateral extremity cellulitis, heat exhaustion with dehydration and acute kidney injury continue with IV antibiotics pending cultures. Subjective Date/time seen: 10/30/24 07:27 Interval history: Patient in the bed and resting new cultures are still pending. Awaiting result. Dressing changes daily will continue to monitor pateint denies any other issues will continue to monitor. Exam Const: General: no acute distress and well nourished Nutritional Appearance: well nourished Orientation/consciousness: patient oriented x3 Limitations: no limitations HENMT: Head: normal to inspection Ears: external ears normal Face/Nose/Sinus: Normal external nose present Eyes: Conjunctivae: conjunctivae normal Pupils: Equal, round and reactive pupils present EOM: EOMs intact bilaterally Neck: Neck: normal visual inspection and no meningeal signs Chest: Chest palpation & inspection: normal inspection of the chest Resp: Effort & Inspection: normal respiratory effort and not labored Auscultation: clear to auscultation bilaterally and no crackles Cardio: Rate: regular rate Rhythm: regular rhythm Heart sounds: no murmurs GI: Inspection: non-distended Auscultation: normal bowel sounds : General: Yes bladder normal to palpation and Yes no CVA tenderness Back/Spine/Pelvis: Back: no CVA tenderness Skin: General skin exam: No normal color and wounds noted Rashes: rash noted Wounds: no wounds and wounds noted ulceration left dorsal foot with surrounding erythema, maceration right lateral foot drainage (dried yellow/brown color) and with surrounding erythema Other: left inner thigh has an elongated inner thigh erythema/ rash of cellulitis; left lower extremity from the mid guevara down to the ankle has a erythema mostly circumferentially of cellulitis Neuro: General: patient oriented x3, moves all extremities, no meningeal signs, no focal motor deficits and CN's II-XI intact bilaterally Cranial nerves: Yes Equal, round and reactive pupils present and Yes Nystagmus not present Speech: normal speech Other: fast exam is negative, NIH score is 0, GCS is 15 Extrem: General: normal to inspection and edema (entire left leg swollen) left Psych: Mental Status: mental status grossly normal Affect: normal affect Attitude: cooperative Other: threatening to leave AMA every day Objective Data Vital Signs Vital Signs: Vital Signs - 24 hr 10/29/24 08:00 10/29/24 16:00 10/30/24 00:00 Temperature 98 F 98 F 97.4 F L Pulse Rate 80 78 78 Respiratory Rate 20 20 20 Blood Pressure 128/74 138/72 135/88 Pulse Oximetry 96 93 92 Oxygen Delivery Room Air Room Air Room Air Intake/Output Intake/Output: Intake & Output 10/27/24 10/28/24 10/29/24 10/30/24 23:59 23:59 23:59 23:59 Intake Total 2640 2020 2200 380 Output Total 1775 1850 2800 1300 Balance 865 170 -600 -920 Meds/Results Medications: Active Medications Generic Name Dose Route Start Last Admin Trade Name Freq PRN Reason Stop Dose Admin Acetaminophen 650 mg 10/25/24 16:38 10/29/24 22:25 Acetaminophen 325 Mg Tablet PO 650 mg Q4H PRN Administration Mild Pain (1-3) or Fever Hydrocodone Bitart/Acetaminophen 1 tab 10/25/24 16:38 10/28/24 09:31 Hydrocodone/Acetaminophen (*Crx) 5-325 Mg Tablet PO 1 tab Q4H PRN Administration Moderate Pain (4-6) Calcium Carbonate 200 mg 10/27/24 10:58 10/27/24 11:12 Calcium Carbonate (Tums) 500 Mg (200 Mg Elemental) PO 200 mg Q6H PRN Administration Indigestion Enoxaparin Sodium 40 mg 10/26/24 09:00 10/29/24 08:45 Enoxaparin 40 Mg/0.4 Ml Syringe SUB-Q Not Given DAILY DEB Hydralazine HCl 20 mg 10/25/24 16:38 Hydralazine Hcl 20 Mg/Ml Vial IV PUSH Q6HR PRN hypertension Ceftriaxone Sodium 2 gm/ 100 mls @ 200 mls/hr 10/27/24 16:00 10/29/24 17:05 Sodium Chloride IVPB Infused Q24H DEB Infusion Losartan Potassium 50 mg 10/25/24 16:45 10/29/24 08:41 Losartan Potassium 50 Mg Tablet PO 50 mg DAILY DEB Administration Methocarbamol 750 mg 10/28/24 10:00 10/29/24 22:27 Methocarbamol 750 Mg Tablet PO 750 mg QID PRN Administration muscle cramp/spams Ondansetron HCl 4 mg 10/25/24 16:38 Ondansetron Inj 4 Mg/2 Ml Vial IV PUSH Q6H PRN Nausea And Vomiting Saccharomyces Boulardii 250 mg 10/27/24 17:00 10/29/24 16:31 Saccharomyces Boulardii 250 Mg Capsule PO 250 mg TID DEB Administration Trazodone HCl 50 mg 10/25/24 16:44 Trazodone Hcl 50 Mg Tablet PO HS PRN Insomnia Radiology Results: ITS Impressions Chest X-Ray 10/25/24 13:07 Impression: 1: Cardiomegaly with mild interstitial edema. Head CT 10/25/24 13:11 IMPRESSION: 1. No acute intracranial abnormality. Limited study. Venous Doppler Study 10/26/24 11:56 IMPRESSION: 1: No lower extremity deep venous thrombosis. Labs Labs: Laboratory Results - last 24 hr 10/30/24 06:04 WBC 16.0 H RBC 5.33 Hgb 14.0 Hct 43.2 MCV 81.1 MCH 26.3 L MCHC 32.4 RDW 14.7 H Plt Count 410 MPV 9.6 Immature Gran % (Auto) 5.6 H Neut % (Auto) 67.6 Lymph % (Auto) 15.4 L [place] % (Auto) 9.8 Eos % (Auto) 0.8 L Baso % (Auto) 0.8 Lymph # (Auto) 2.46 [place] # (Auto) 1.56 H Eos # (Auto) 0.13 Baso # (Auto) 0.13 H Abs Immat Gran (auto) 0.90 H Absolute Neuts (auto) 10.81 H Absolute Nucleated RBC 0.00 Nucleated RBC % 0.0
[2024-10-30 08:00] VITALS: BP 122/81; PULSE 81; RESP 17; TEMP 36.3; O2SAT 97
[2024-10-30 08:16] LABS: Alanine Aminotransferase 30 U/L (6-50); Albumin Level 2.7 g/dL (3.5-5.1); Alkaline Phosphatase 91 U/L (38-126); Anion Gap 2 mmol/L (4-12); Aspartate Amino Transferase 42 U/L (17-59); Bilirubin,Total 0.3 mg/dL (0.2-1.3); Blood Urea Nitrogen 18 mg/dL (9-20); Calcium 8.3 mg/dL (8.4-10.2); Carbon Dioxide 30 mmol/L (22-30); Chloride 102 mmol/L (98-107); Estimated CRCL calculation 83 ml/min; Estimated Glomerular Filt Rate > 60; Glucose 107 mg/dL (65-110); Magnesium 1.8 mg/dL (1.6-2.3); Osmolality Calculated 279 mOsm/kg (285-295); Potassium 4.1 mmol/L (3.4-5.0); Sodium 134 mmol/L (137-145); Total Protein 6.5 g/dL (6.3-8.2)
[2024-10-30] MEDS: SACCHAROMYCES BOULARDII 250 MG CAPSULE PO ×3 (09:30→16:22)
[2024-10-30] MEDS: LOSARTAN POTASSIUM 50 MG TABLET PO (09:30)
[2024-10-30 16:00] VITALS: BP 131/74; PULSE 84; RESP 16; TEMP 36.6; O2SAT 95
[2024-10-30] MEDS: cefTRIAXone 2 GM in SODIUM CHLORIDE 0.9% IV 100 ML 200 ML IVPB (16:22)
[2024-10-31] VITALS: BP 135/78; PULSE 79; RESP 18; TEMP 36.4; O2SAT 96
[2024-10-31] MEDS: HYDROcodone/acetaminophen (*CRX) 5-325 MG TABLET 1 TAB PO (00:45)
[2024-10-31] MEDS: CALCIUM CARBONATE (TUMS) 500 MG (200 MG ELEMENTAL) PO (00:46)
[2024-10-31 05:32] LABS: Hematocrit 46.1 % (40.0-54.0); Hemoglobin 14.6 g/dL (14.0-18.0); Immature Granulocyte Percent A 6.4 % (0.0-0.0); Immature Platelet Fraction Pct 2.1 % (1.0-7.0); Lymphocytes Absolute Auto 2.73 K/mm3 (1.10-4.50); Mean Corpuscular HGB Conc 31.7 g/dL (32-36); Mean Corpuscular Hemoglobin 25.7 pg (27.0-31.0); Mean Corpuscular Volume 81.3 fL (78.0-102.0); Nucleated Red Blood Cells Absolute Auto 0.00 K/mm3 (0.00-0.00); Nucleated Red Blood Cells Perc 0.0 % (0-0.0); Platelet Count Result 487 K/mm3 (150-420); Red Blood Count 5.67 M/mm3 (4.70-6.10); White Blood Count 15.8 K/mm3 (4.8-10.8)
[2024-10-31 05:43] LABS: Alanine Aminotransferase 32 U/L (6-50); Albumin Level 2.9 g/dL (3.5-5.1); Alkaline Phosphatase 87 U/L (38-126); Anion Gap 2 mmol/L (4-12); Aspartate Amino Transferase 42 U/L (17-59); Bilirubin,Total 0.4 mg/dL (0.2-1.3); Blood Urea Nitrogen 17 mg/dL (9-20); Calcium 8.3 mg/dL (8.4-10.2); Carbon Dioxide 32 mmol/L (22-30); Chloride 102 mmol/L (98-107); Estimated CRCL calculation 90 ml/min; Estimated Glomerular Filt Rate > 60; Glucose 96 mg/dL (65-110); Magnesium 2.0 mg/dL (1.6-2.3); Osmolality Calculated 283 mOsm/kg (285-295); Potassium 4.4 mmol/L (3.4-5.0); Sodium 136 mmol/L (137-145); Total Protein 7.1 g/dL (6.3-8.2)
[2024-10-31 08:00] VITALS: BP 124/81; PULSE 84; RESP 17; TEMP 37.1; O2SAT 96
[2024-10-31] MEDS: SACCHAROMYCES BOULARDII 250 MG CAPSULE PO ×3 (08:57→16:22)
[2024-10-31] MEDS: LOSARTAN POTASSIUM 50 MG TABLET PO (08:57)
--- NOTE | 2024-10-31 10:29 | P.PN_ITS ---
Progress Note: A&P Assessment and Plan (1) Sepsis due to cellulitis: Code(s): L03.90 - Cellulitis, unspecified; A41.9 - Sepsis, unspecified organism Status: Acute Assessment and Plan: patient presented with cellulitis to bilateral lower extremities, leukocytosis, tachycardia with normal lactic acid no hypotension patient initially started on IV Zosyn in the ED, did receive IV fluids 2 L * switch patient to IV Zosyn and vancomycin pending cultures * blood cultures Pending * venous Dopplers to rule out any DVT no DVT noted * ordered echocardiogram do cardiomegaly completed re (2) Venous insufficiency: Code(s): I87.2 - Venous insufficiency (chronic) (peripheral) Status: Acute Assessment and Plan: patient appears to have some underlying venous insufficiency which he believes he has been diagnosed with before * encourage elevation when at rest * reports he was supposed to see a vascular /director dietetics department at another hospital outpatient will need to follow up as a outpateint (3) Hypertension: Code(s): I10 - Essential (primary) hypertension Status: Acute Assessment and Plan: patient with elevated blood pressures as high as 197/98 * started patient on losartan 50 mg since EDELMIRA improved * hydralazine p.r.n. 20 mg IVP systolics greater than 180 (4) EDELMIRA (acute kidney injury): Code(s): N17.9 - Acute kidney failure, unspecified Status: Acute Assessment and Plan: patient with acute kidney injury likely secondary to dehydration and heat exhaustion * received IV fluids 2 L in the ED * continued 100 mL/hour overnight discontinued now that patient is eating and drinking * creatinine 17/0.80 * avoid nephrotoxic medications (5) Acute dehydration: Code(s): E86.0 - Dehydration Status: Resolved Assessment and Plan: SEE ABOVE #4 (6) Heat exhaustion: Qualifiers: Encounter type: initial encounter Qualified Code(s): T67.5XXA - Heat exhaustion, unspecified, initial encounter Code(s): T67.5XXA - Heat exhaustion, unspecified, initial encounter Status: Resolved (7) Cardiomegaly: Code(s): I51.7 - Cardiomegaly Status: Acute Assessment and Plan: CXR showing cardiomegaly and interstitial edema, BNP mildly elevated * discontinued IV fluids noted patient is tolerating oral intake * echocardiogram pending results Plan Code status: Full code per patient DVT prophylaxis: Lovenox Stress ulcer prophylaxis: NA PT/OT notes: ambulatory Subjective Date/time seen: 10/31/24 10:29 Interval history: Patient is up and i personally walked him around the nurses station and he was able without difficulties. Patient blood cultures are still no growth preliminary. Patient denies significant amount of pain. Exam Const: General: no acute distress and well nourished Nutritional Appearance: well nourished Orientation/consciousness: patient oriented x3 Limitations: no limitations HENMT: Head: normal to inspection Ears: external ears normal Face/Nose/Sinus: Normal external nose present Eyes: Conjunctivae: conjunctivae normal Pupils: Equal, round and reactive pupils present EOM: EOMs intact bilaterally Neck: Neck: normal visual inspection and no meningeal signs Chest: Chest palpation & inspection: normal inspection of the chest Resp: Effort & Inspection: normal respiratory effort and not labored Auscultation: clear to auscultation bilaterally and no crackles Cardio: Rate: regular rate Rhythm: regular rhythm Heart sounds: no murmurs GI: Inspection: non-distended Auscultation: normal bowel sounds : General: Yes bladder normal to palpation and Yes no CVA tenderness Back/Spine/Pelvis: Back: no CVA tenderness Skin: General skin exam: No normal color and wounds noted Rashes: rash noted Wounds: no wounds and wounds noted ulceration left dorsal foot with surrounding erythema, maceration right lateral foot drainage (dried yellow/brown color) and with surrounding erythema Other: left inner thigh has an elongated inner thigh erythema/ rash of cellulitis; left lower extremity from the mid guevara down to the ankle has a erythema mostly circumferentially of cellulitis Neuro: General: patient oriented x3, moves all extremities, no meningeal signs, no focal motor deficits and CN's II-XI intact bilaterally Cranial nerves: Yes Equal, round and reactive pupils present and Yes Nystagmus not present Speech: normal speech Other: fast exam is negative, NIH score is 0, GCS is 15 Extrem: General: normal to inspection and edema (entire left leg swollen) left Psych: Mental Status: mental status grossly normal Affect: normal affect Attitude: cooperative Other: threatening to leave AMA every day Objective Data Vital Signs Vital Signs: Vital Signs - 24 hr 10/30/24 16:00 10/31/24 00:00 Temperature 97.8 F 97.6 F Pulse Rate 84 79 Respiratory Rate 16 18 Blood Pressure 131/74 135/78 Pulse Oximetry 95 96 Oxygen Delivery Room Air Room Air Intake/Output Intake/Output: Intake & Output 10/28/24 10/29/24 10/30/24 10/31/24 23:59 23:59 23:59 23:59 Intake Total 2019 2199 2280 600 Output Total 1849 2800 2750 2600 Balance 678 -707 -057 -9146 Meds/Results Medications: Active Medications Generic Name Dose Route Start Last Admin Trade Name Freq PRN Reason Stop Dose Admin Acetaminophen 650 mg 10/25/24 16:38 10/29/24 22:25 Acetaminophen 325 Mg Tablet PO 650 mg Q4H PRN Administration Mild Pain (1-3) or Fever Hydrocodone Bitart/Acetaminophen 1 tab 10/25/24 16:38 10/31/24 00:45 Hydrocodone/Acetaminophen (*Crx) 5-325 Mg Tablet PO 1 tab Q4H PRN Administration Moderate Pain (4-6) Calcium Carbonate 200 mg 10/27/24 10:58 10/31/24 00:46 Calcium Carbonate (Tums) 500 Mg (200 Mg Elemental) PO 200 mg Q6H PRN Administration Indigestion Enoxaparin Sodium 40 mg 10/26/24 09:00 10/30/24 09:31 Enoxaparin 40 Mg/0.4 Ml Syringe SUB-Q Not Given DAILY DEB Hydralazine HCl 20 mg 10/25/24 16:38 Hydralazine Hcl 20 Mg/Ml Vial IV PUSH Q6HR PRN hypertension Ceftriaxone Sodium 2 gm/ 100 mls @ 200 mls/hr 10/27/24 16:00 10/30/24 16:52 Sodium Chloride IVPB Infused Q24H DEB Infusion Losartan Potassium 50 mg 10/25/24 16:45 10/31/24 08:57 Losartan Potassium 50 Mg Tablet PO 50 mg DAILY DEB Administration Methocarbamol 750 mg 10/28/24 10:00 10/29/24 22:27 Methocarbamol 750 Mg Tablet PO 750 mg QID PRN Administration muscle cramp/spams Ondansetron HCl 4 mg 10/25/24 16:38 Ondansetron Inj 4 Mg/2 Ml Vial IV PUSH Q6H PRN Nausea And Vomiting Saccharomyces Boulardii 250 mg 10/27/24 17:00 10/31/24 08:57 Saccharomyces Boulardii 250 Mg Capsule PO 250 mg TID DEB Administration Trazodone HCl 50 mg 10/25/24 16:44 Trazodone Hcl 50 Mg Tablet PO HS PRN Insomnia Radiology Results: ITS Impressions Chest X-Ray 10/25/24 13:07 Impression: 1: Cardiomegaly with mild interstitial edema. Head CT 10/25/24 13:11 IMPRESSION: 1. No acute intracranial abnormality. Limited study. Venous Doppler Study 10/26/24 11:56 IMPRESSION: 1: No lower extremity deep venous thrombosis. Labs Labs: Laboratory Results - last 24 hr 10/31/24 05:07 WBC 15.8 H RBC 5.67 Hgb 14.6 Hct 46.1 MCV 81.3 MCH 25.7 L MCHC 31.7 L RDW 14.7 H Plt Count 487 H MPV 9.6 Immature Gran % (Auto) 6.4 H Neut % (Auto) 64.1 Lymph % (Auto) 17.3 L [place] % (Auto) 10.2 Eos % (Auto) 1.0 Baso % (Auto) 1.0 Lymph # (Auto) 2.73 [place] # (Auto) 1.62 H Eos # (Auto) 0.16 Baso # (Auto) 0.16 H Abs Immat Gran (auto) 1.02 H Absolute Neuts (auto) 10.13 H Absolute Nucleated RBC 0.00 Nucleated RBC % 0.0 % Immature Plt Fraction 2.1 Sodium 136 L Potassium 4.4 Chloride 102 Carbon Dioxide 32 H Anion Gap 2 L BUN 17 Creatinine 0.80 Estim Creat Clear Calc 90 Estimated GFR > 60 Glucose 96 Calculated Osmolality 283 L Calcium 8.3 L Magnesium 2.0 Total Bilirubin 0.4 AST 42 ALT 32 Alkaline Phosphatase 87 Total Protein 7.1 Albumin 2.9 L
[2024-10-31 16:00] VITALS: BP 126/81; PULSE 81; RESP 16; TEMP 36.2; O2SAT 98
[2024-10-31] MEDS: cefTRIAXone 2 GM in SODIUM CHLORIDE 0.9% IV 100 ML 200 ML IVPB (16:21)
--- NOTE | 2024-10-31 17:24 | PC.NURSE ---
Andra Mitchell, CABLE WAY OPERATOR/Hospitalist, notified that the 48 hour blood culture results are no growth.
[2024-10-31 21:05] VITALS: BP 107/78; PULSE 88; RESP 18; TEMP 36.3; O2SAT 96
--- NOTE | 2024-10-31 21:20 | PC.NURSE ---
Patient left AMA. Patient walking, has no ride. A&O x4. Patient encouraged to stay for more therapy/IV antibiotics. Patient educated on risks and for symptoms to be aware of and when to contact his MD. Patient said he will take antibiotics he had gotten from Dr Franz before coming into hospital. VSS. Skin remains intact. Patient showered before leaving and his IV site was discontinued. Frank Mitchell [employer], Dena Mitchell RN DON and Cristy Levine RN Nurse Multifocal Button Generator all notified by Michelle Jaimes RN Charge Nurse.
--- NOTE | 2024-11-01 09:33 | PC.NURSE ---
ATTEMPTED TO F/U WITH PT CONCERNING HIS AMA DEPARTURE LAST NIGHT. CALL WENT STRAIGHT TO VOICEMAIL, UNABLE TO LEAVE MESSAGE.
--- NOTE | 2024-11-01 10:20 | PM.IMPN ---
Subjective Date/time seen: 11/01/24 10:20 Interval history: Patient in the middle of the night left AMA I was informed. He left 0930 pm I sent electronically oral antibiotics to pharmacy for patient . Objective Data Vital Signs Vital Signs: Vital Signs - 24 hr 10/31/24 16:00 10/31/24 21:05 Temperature 97.2 F L 97.4 F L Pulse Rate 81 88 Respiratory Rate 16 18 Blood Pressure 126/81 107/78 Pulse Oximetry 98 96 Oxygen Delivery Room Air Room Air Intake/Output Intake/Output: Intake & Output 10/29/24 10/30/24 10/31/24 11/01/24 23:59 23:59 23:59 23:59 Intake Total 2200 2280 2550 Output Total 2800 2750 2600 Balance -600 -470 -50 Meds/Results Radiology Results: ITS Impressions Chest X-Ray 10/25/24 13:07 Impression: 1: Cardiomegaly with mild interstitial edema. Head CT 10/25/24 13:11 IMPRESSION: 1. No acute intracranial abnormality. Limited study. Venous Doppler Study 10/26/24 11:56 IMPRESSION: 1: No lower extremity deep venous thrombosis.
--- NOTE | 2024-11-01 10:25 | PC.NURSE ---
Discharge call back made, no answer and unable to leave VM r/t no ID to verify number belongs to patient.
--- NOTE | 2024-11-05 11:25 | PC.NURSE ---
2nd call made for discharge call back. No answer and No VM set up to leave message.
== END 2024-10-31 21:20 | disposition left against medical advice (07) | DRG 872 ==
LOC: CHSED 14:17 → CHS2ND 14:40
PROVIDERS: Nurse Practitioner; Nurse Practitioner Family; Admitting Provider Internal Medicine; Emergency Provider Emergency Medicine; PCP Internal Medicine; Visit Provider Internal Medicine
DX: A41.9 Sepsis, unspecified organism (principal); L03.116 Cellulitis of left lower limb; L03.115 Cellulitis of right lower limb; N17.9 Acute kidney failure, unspecified; T67.5XXA Heat exhaustion, unspecified, initial encounter; B95.4 Other streptococcus as the cause of diseases classified elsewhere; I87.2 Venous insufficiency (chronic) (peripheral); E86.0 Dehydration; I11.9 Hypertensive heart disease without heart failure; F17.210 Nicotine dependence, cigarettes, uncomplicated
CPT/HCPCS: 36415; 70450; 71045; 80053; 81001; 83036; 83605; 83735; 83880; 84145; 84484; 85025; 85055; 85652; 86140; 87040; 93005; 93306; 93970; 96361; 96365; 96366; 96367; 96372; 96375; 97161; 97165; 97530; 99285; A9270; G0378; J0690; J0696; J1650; J2543; J3373; J7030

== ENCOUNTER 2024-11-15 12:39 | Emergency (ER) | payer MEDICARE, SELFPAY ==
--- NOTE | ~2024-11-15 | CT_ITS ---
EXAMINATION: CTA chest PE protocol DATE: 11/16/2024 11:19 CDT INDICATION: Septic emboli on thoracic CT scan possible TECHNIQUE: Computed tomographic angiography (CTA) of the chest was performed with 100 mL Omnipaque-35 0 intravenous contrast. The dose-length product was 686.20 mGy-cm. Maximum intensity projection 3D-re constructions of the aorta and other arteries were constructed by the technologist on a separate work station. COMPARISON: None. FINDINGS: Small amount of perinephric fat stranding and fluid in the upper abdomen. There is a 2.9 cm cyst in the right kidney. There is a 1.0 cm nonobstructing calcification in the lef t kidney. Heart is moderately enlarged. Pulmonary artery measures 5.2 cm in cross-section. There are a few nonenlarged mediastinal and hilar lymph nodes. Thoracic aorta is not aneurysmal. Mild vascular disease in the thoracic aorta. Visualized tracheobronchial tree is patent. No pneumothorax. No pleural effusion. There is a 2.4 x 1.9 cm cavitary lesion in the right lower lobe posteriorly which abuts the pleura. There is mild bronchiectasis in the lower lobes. Moderate-sized reticular and patchy opacities in the lower lungs, greater on the left. Mild paraseptal emphysema. No pulmonary emboli identified. Bones appear osteopenic. Multilevel [id number] degenerative change scattered throughout the tho racic spine. Extensive joint space narrowing in the lower cervical spine. If of concern, consider additional imagi ng for further assessment. IMPRESSION: 1. No pulmonary embolism identified. 2. There is a 2.4 x 1.9 cm cavitary lesion in the right lower lobe posteriorly which abuts the pleura . Differential is broad and includes but is not limited to cavitary mass, inflammatory/infectious pro cess or septic emboli. Follow-up is recommended. Consider a biopsy for further assessment. 3.Moderate-sized reticular and patchy opacities in the lower lungs, greater on the left. 4.Pulmonary artery measures 5.2 cm in cross-section. The finding is concerning for pulmonary artery h ypertension. 5.Extensive joint space narrowing in the lower cervical spine. If of concern, consider additional mohamud ging for further assessment. Findings as above. Reviewed, dictated and finalized at location A. IMPRESSION: 1. No pulmonary embolism identified. 2. There is a 2.4 x 1.9 cm cavitary lesion in the right lower lobe posteriorly which abuts the pleura. Differential is broad and includes but is not limited t o cavitary mass, inflammatory/infectious process or septic emboli. Follow-up is recommended. Consider a biopsy for further assessment. 3.Moderate-sized reticular and patchy opacities in the lower lungs, greater on the left. 4.Pulmonary artery measures 5.2 cm in cross-section. The finding is concerning for pulmonary artery hypertension. 5.Extensive joint space narrowing in the lower cervical spine. If of concern, c onsider additional imaging for further assessment. Findings as above.
--- NOTE | ~2024-11-15 | CT_ITS ---
EXAMINATION: CT cervical spine wo con DATE: 11/15/2024 13:28 INDICATION: Severe pain after chiropractor TECHNIQUE: Computed tomography (CT) of the cervical spine was performed without intravenous contrast. Automated exposure control and iterative reconstruction technique were employed. The dose-length pro duct was 579.41 mGy-cm. COMPARISON: None FINDINGS: 3 mm anterolisthesis C4 on C5 and 2 mm anterolisthesis C5 on C6. There is focal kyphosis in the lower cervical spine due to at least in part to mild anterior vertebral body height loss at C6 and a commi nuted likely pathologic fracture at an underlying the superior endplate of C7. There is severe narrow ing of the C6-C7 disc space with extensive indistinct regions to the adjacent endplates and suggestio n of some osteolysis extending into the vertebral bodies suspicious for discitis and osteomyelitis. O f note review of patient's medical record demonstrates a consistently elevated white blood cell count over the last several weeks with an elevated CRP level on 10/28/2024. Remaining vertebral body height s are normal. No other fractures identified. Additional severe disc height loss with intact endplates at C4-C5. Moderate disc height loss at C7-T1 through T3-T4, mild to moderate disc height loss at C6- C7 and mild disc height loss at C3-C4. There is widening of the C6-C7 interspinous space although the re is no suggestion of a hematoma or focal increased stranding in the intervening soft tissues to sug gest acute injury to the interspinous ligaments. There is focal swelling of the longus colli muscle b ilaterally at the level of the suspected discitis would suggest possible associated small paraspinal/ intramuscular abscesses. Assessment is however limited in the absence of contrast. Mild biapical pleu ral-parenchymal scarring with small calcified right apical nodule calcite mediastinal lymph nodes con sistent with old granulomatous disease. The following disc levels are specifically discussed: C2-C3: Disc is bulging. There is mild bilateral uncovertebral joint osteoarthritis. There is altered left and severe right facet joint osteoarthritis. There is mild right neural foraminal stenosis. Ther e is minimal central canal stenosis. C3-C4: Disc is bulging. There is mild bilateral uncovertebral joint osteoarthritis. There is moderate bilateral facet joint osteoarthritis. There is mild bilateral neural foraminal stenosis. There is mi ld central canal stenosis. C4-C5: The disc does not appear to extend beyond the more posterior C5 endplate margin. There is laz re bilateral uncovertebral joint osteoarthritis. There is moderate right and severe left facet joint osteoarthritis. There is moderate left and mild to moderate right neural foraminal stenosis. There is mild central canal stenosis. C5-C6: Disc is bulging. There is moderate right and severe left uncovertebral joint osteoarthritis. T here is mild to moderate left and severe right facet joint osteoarthritis. There is mild right and mo derate left neural foraminal stenosis. There is mild central canal stenosis. C6-C7: There is fragmentation along the endplates including posteriorly suspicious for discitis and o steomyelitis along with secondary likely pathologic fracture. There is mild bilateral facet joint ost eoarthritis. There is moderate bilateral neural foraminal stenosis. There is mild central canal steno sis. Discrimination of fluid and soft tissue density within the central canal is insufficient to asse ss for additional narrowing beyond the confines of the ossific margins of the canal including decreas ed sensitivity for any potential epidural abscess which is not appreciated. C7-T1: Small posterior disc osteophyte complex. There is mild bilateral uncovertebral joint osteoarth ritis. There is moderate right and severe left facet joint osteoarthritis. There is mild bilateral, l eft greater than right neural foraminal stenosis. There is negligible central canal stenosis. IMPRESSION: 1. Mild compression fracture at C7 with suggestion of underlying C6-C7 discitis and osteomyelitis inv olving both vertebral bodies. Recommend there are surgical consultation and further evaluation with p re and postcontrast MRI. Dr. Iglesias discussed these findings with Dr. Trammell at 2:01 PM. 2. Severe cervical and moderate upper thoracic spondylosis. Reviewed, dictated and finalized at location A. IMPRESSION: 1. Mild compression fracture at C7 with suggestion of underlying C6-C7 discitis and osteomyelitis involving both vertebral bodies. Recommend there are surgica l consultation and further evaluation with pre and postcontrast MRI. Dr. Dong rt discussed these findings with Dr. Trammell at 2:01 PM. 2. Severe cervical and moderate upper thoracic spondylosis.
--- NOTE | ~2024-11-15 | CT_ITS ---
EXAMINATION: CT thoracic spine wo con DATE: 11/15/2024 13:29 INDICATION: Severe back pain after chiropractic adjustment. TECHNIQUE: Computed tomography (CT) of the thoracic spine was performed without intravenous contrast. Automated exposure control and iterative reconstruction technique were employed. The dose-length pro duct was 579.41 mGy-cm. COMPARISON: Chest CT dated 04/18/2021 FINDINGS: Targeted degree mid thoracic to upper lumbar dextroscoliosis with 8 degree compensatory upper thoraci c levocurvature. No interval change in chronic mild anterior wedging at T7 and with left-sided promin ence at T6. Additional chronic likely physiologic minimal anterior wedging at T11 and T12. No acute f racture. A few chronic sclerotic bone islands at T5, T6 and T10 which are unchanged since 2021. There is severe disc height loss at T9-T10, T10-T11, T12-L1 and L1-L2. Moderate disc height loss at the re maining thoracic and upper lumbar levels. There is vacuum phenomena at many of these levels. Left par acentral disc protrusion at T8-T9, more diffuse disc bulges at T9-T10 through L2-L3. This contributes to mild to moderate central canal stenosis at L1-L2 and L2-L3 and mild central canal stenosis at at T8-T9 through T12-L1. There is severe facet osteoarthritis on the right at T9-T10 with mild and moder ate osteoarthritis at the remaining thoracic facet joints with upper thoracic predominance. There is moderate neural foraminal stenosis on the left at T1-T2. Mild neural foraminal stenosis at many of th e remaining neural foramina throughout the left and right sides of the thoracic spine. Mild paraseptal is emphysema the visualized lungs. There is groundglass opacity with irregular septal line thickening in the dependent aspect bilateral lower lobes which could represent atelectasis, pul monary edema or pneumonia. There is a 2.5 x 2.3 cm cavitary lesion, potentially partially fluid-fille d in the lateral basilar segment of the right lower lobe with nonuniform wall thickening and which gi fracisco the possibility of septic discitis/osteomyelitis the cervical spine detailed on prior cervical sp ine CT report also raises possibility of septic pulmonary emboli. Elevation of left hemidiaphragm. Ca lcified nodules at the right apex, calcified right hilar and mediastinal lymph nodes and multiple sma ll splenic nodules consistent with old granulomatous disease. Bilateral nonobstructing nephrolithiasi s measuring up to 1.3 cm at the lower pole the left kidney. 3 cm cyst at the upper pole the right kid shira. Mild likely reactive retrocrural lymphadenopathy. Indeterminate larger 1.7 cm left paraaortic ly mph node below level of the renal vein which could also be reactive, metastatic or due to lymphoma. IMPRESSION: 1. Severe thoracic spondylosis with no acute osseous adenopathy. 2. Emphysema with interstitial and groundglass opacities in the dependent lower lobes which could rep resent atelectasis, pulmonary edema or pneumonia. 3. 2.5 cm asymmetric thick-walled cavitary lesion in the right lower lobe which given findings of denise pected discitis raise concern for septic emboli. Differential would include malignancy/metastatic dis ease. Consider dedicated chest CT for more comprehensive assessment for additional lung disease. 4. Enlarged left para-aortic lymph node which could be reactive, metastatic or lymphoma. 5. Bilateral nonobstructing nephrolithiasis. Reviewed, dictated and finalized at location A. IMPRESSION: 1. Severe thoracic spondylosis with no acute osseous adenopathy. 2. Emphysema with interstitial and groundglass opacities in the dependent lower lobes which could represent atelectasis, pulmonary edema or pneumonia. 3. 2.5 cm asymmetric thick-walled cavitary lesion in the right lower lobe which given findings of suspected discitis raise concern for septic emboli. Differen tial would include malignancy/metastatic disease. Consider dedicated chest CT f or more comprehensive assessment for additional lung disease. 4. Enlarged left para-aortic lymph node which could be reactive, metastatic or lymphoma. 5. Bilateral nonobstructing nephrolithiasis.
[2024-11-15 12:40] VITALS: BP 173/96; PULSE 69; RESP 18; TEMP 36.6; O2SAT 100
--- OUTSIDE RECORDS SUMMARY | 2024-11-15 12:41 | XMS_ITS | Clinical Summary ---
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
--- NOTE | 2024-11-15 12:56 | ED.UPPEXIN ---
HPI - Extremity Injury (Upper) General Chief Complaint: Extremity Injury, Upper Stated Complaint: pain in both shoulders Time Seen by Provider: 11/15/24 12:55 Source: patient Mode of arrival: ambulatory Limitations: no limitations History of Present Illness HPI narrative: 64 years old white male drove himself to the emergency room complaining of neck pain, upper thoracic spine pain, radiating to both shoulder bilaterally because causing numbness of the upper extremity bilaterally more on the left side after chiropractor cracked his neck and popped his upper back prior to arrival. History of hypertension been out of medication for months. Smokes cigarettes, and weed. He denies any fever, chills, nausea, vomiting, chest pain abdominal pain or shortness of breath. Today with 3rd chiropractor visit Related Data Home Medications ?Medication ?Instructions ?Recorded ?Confirmed ?Last Taken ?Type atorvastatin 10 mg tablet 10 mg PO DAILY 11/27/21 10/25/24 Unknown History losartan 100 mg tablet 100 mg PO DAILY 11/27/21 10/25/24 Unknown History Allergies Allergy/AdvReac Type Severity Reaction Status Date / Time No Known Allergies Allergy Verified 11/15/24 12:51 Review of Systems Review of Systems: All systems reviewed & are unremarkable except as noted in HPI and below PMFSH Past Medical History Medical History Dyslipidemia Social History Social History Smoking packs per day: 1 Smoking cigarettes per day: 20.0 Smoking status: Current every day smoker Tobacco type: cigarettes Second hand tobacco smoke exposure: No Substance use: current Substance use type: marijuana and amphetamines Do You Feel Safe in your Home?: Yes Lack of Transportation: No Lack of Food: Never True Current Housing: I Have Housing Concerned About Future Housing: No Difficulty Paying Gas/Electric Bills: No Difficulty Paying for Meds: No Currently Unemployed: No Education: High School Diploma/GED Difficulty w/ Childcare or Family Care: No Spiritual care concerns: No Exam Narrative: General appearance: Well-developed, well-nourished Skin: Normal color Head: Normocephalic, nontraumatic Eyes: Clear conjunctiva ENT: Oropharynx normal, ears normal, nose normal Neck: diffuse tenderness, kyphosis, scoliosis Chest and respiratory: Airway patent, no respiratory distress, no accessory muscle use Heart: Regular rate/rhythm Abdomen: Soft, nontender, no organomegaly, quiet bowel sounds Vascular: Normal peripheral pulses, normal capillary refill. Musculoskeletal: diffuse tenderness upper back bilaterally and spinous and paraspinous, no bruises, no swelling or rash, scoliosis Neurologic: Alert and oriented ?3, FRONT END DRUPAL DEVELOPER is normal as tested, patient could not keep his arms up more than 3 seconds mainly on the left side Course Consultations Consultation #1: Alejandro , nurse practitioner/neurosurgery accepted patient transfer, [facility] Do not give antibiotic. Date: 11/15/24 Time: 15:02 Consultation #2: DR BEST , HOSPITALIST AT [facility] WHO ACCEPTED PATIENT T Date: 11/15/24 Time: 15:06 Vital Signs Vital signs: Vital Signs Temperature 36.6 C 11/15/24 12:40 Pulse Rate 69 11/15/24 12:40 Respiratory Rate 18 11/15/24 12:40 Blood Pressure 173/96 H 11/15/24 12:40 Pulse Oximetry 100 11/15/24 12:40 Oxygen Delivery Room Air 11/15/24 12:40 Temperature 36.6 C 11/15/24 12:40 Pulse Rate 77 11/15/24 15:05 Respiratory Rate 18 11/15/24 12:40 Blood Pressure 170/93 H 11/15/24 15:05 Pulse Oximetry 100 11/15/24 15:05 Oxygen Delivery Room Air 11/15/24 15:05 Transfer Transfered to: [facility] MDM - Extremity Injury (Upper) Imaging Data Radiologist's impression: Impressions Cervical Spine CT 11/15/24 13:59 IMPRESSION: 1. Mild compression fracture at C7 with suggestion of underlying C6-C7 discitis and osteomyelitis involving both vertebral bodies. Recommend there are surgical consultation and further evaluation with pre and postcontrast MRI. Dr. Iglesias discussed these findings with Dr. rTammell at 2:01 PM. 2. Severe cervical and moderate upper thoracic spondylosis. Critical Care Time Critical Care Time Critical Care Time: No Discharge Plan Discharge Clinical Impression: Closed C7 fracture, Cervical discitis, Osteomyelitis of cervical spine Patient Disposition: Acute Care Hospital Condition: Guarded Prognosis Additional Instructions: TRANSFERRED TO [facility] Patient Language: Belgian Prescriptions: No Action amoxicillin-pot clavulanate [Augmentin XR] 1,000-62.5 mg tablet extended release 12 hr 1 tablet PO Q12H Qty: 20 0RF atorvastatin 10 mg tablet 10 mg PO DAILY losartan 100 mg tablet 100 mg PO DAILY amoxicillin-pot clavulanate 875-125 mg tablet 1 tablet PO Q12H Qty: 14 0RF sulfamethoxazole-trimethoprim [Bactrim DS] 800-160 mg tablet 1 tablet PO Q12H Qty: 14 0RF Follow-up/Referrals: UNKNOWN,DOCTOR [Non-Staff] -
[2024-11-15] MEDS: IBUPROFEN 600 MG TABLET PO (13:28)
[2024-11-15] MEDS: dexAMETHasone SOD PHOS INJ 10 MG/ML 1 ML VIAL IM (13:29)
[2024-11-15] MEDS: HYDROcodone/acetaminophen (*CRX) 5-325 MG TABLET 1 TAB PO (13:29)
[2024-11-15] MEDS: LOSARTAN POTASSIUM 50 MG TABLET PO (13:30)
--- OUTSIDE RECORDS SUMMARY | 2024-11-15 13:34 | XMS_ITS | Clinical Summary ---
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
[2024-11-15 15:05] VITALS: BP 170/93; PULSE 77; O2SAT 100
[2024-11-15 15:13] LABS: Hematocrit 42.9 % (40.0-54.0); Hemoglobin 13.2 g/dL (14.0-18.0); Immature Granulocyte Percent A 0.5 % (0.0-0.0); Lymphocytes Absolute Auto 1.73 K/mm3 (1.10-4.50); Mean Corpuscular HGB Conc 30.8 g/dL (32-36); Mean Corpuscular Hemoglobin 25.8 pg (27.0-31.0); Mean Corpuscular Volume 84.0 fL (78.0-102.0); Nucleated Red Blood Cells Absolute Auto 0.00 K/mm3 (0.00-0.00); Nucleated Red Blood Cells Perc 0.0 % (0-0.0); Platelet Count Result 404 K/mm3 (150-420); Red Blood Count 5.11 M/mm3 (4.70-6.10); White Blood Count 12.7 K/mm3 (4.8-10.8)
[2024-11-15 15:27] LABS: Alanine Aminotransferase 16 U/L (6-50); Albumin Level 3.8 g/dL (3.5-5.1); Alkaline Phosphatase 117 U/L (38-126); Anion Gap 5 mmol/L (4-12); Aspartate Amino Transferase 21 U/L (17-59); Bilirubin,Total 0.5 mg/dL (0.2-1.3); Blood Urea Nitrogen 19 mg/dL (9-20); CRP 2.5 mg/dL (<1.0); Calcium 9.2 mg/dL (8.4-10.2); Carbon Dioxide 30 mmol/L (22-30); Chloride 105 mmol/L (98-107); Estimated CRCL calculation 76 ml/min; Estimated Glomerular Filt Rate > 60; Glucose 114 mg/dL (65-110); INR 1.0; Osmolality Calculated 293 mOsm/kg (285-295); Partial Thromboplastin Time 27.9 Sec (23.9-30.70); Potassium 4.1 mmol/L (3.4-5.0); Prothrombin Time 10.7 Seconds (9.50-12.1); Sodium 140 mmol/L (137-145); Total Protein 8.7 g/dL (6.3-8.2)
--- NOTE | 2024-11-15 16:03 | PC.NURSE ---
1420 had C-Collar applied. pt [facility] well
[2024-11-15] MEDS: ONDANSETRON INJ 4 MG/2 ML VIAL IV PUSH (17:39)
[2024-11-15] MEDS: HYDROmorphone HCL INJ (*CRX) 2 MG/ML VIAL 0.5 MG IV PUSH (17:40)
[2024-11-15 17:52] VITALS: BP 177/99; PULSE 87; RESP 18; TEMP 36.5; O2SAT 99
--- NOTE | 2024-11-15 19:01 | PC.NURSE ---
pt sitting on stretcher in ED 6, report received from ANGELICA Navarro for continuation of care on shift foreman. pt awaiting bed at transfer facility.
--- NOTE | 2024-11-15 20:01 | PC.NURSE ---
pt checked, reports frustrations regarding waiting for bed at transfer facility. RN provided update and empathized with pt wait time, patient has c-collar adjusted and in place.
[2024-11-15 20:30] VITALS: BP 140/116; PULSE 108; RESP 18; O2SAT 100
--- NOTE | 2024-11-15 20:42 | PC.NURSE ---
pt given sandwich, chips and drink per request and okay per ERP as RN phoned transfer facility and no bed available at this time without knowing if bed will be available tonight. pt awake and alert, given warm blankets per request. call light within reach and pt given pen/pencil and notepad per request.
[2024-11-15 22:13] VITALS: BP 156/99; PULSE 84; RESP 20; TEMP 36.6; O2SAT 100
--- NOTE | 2024-11-15 22:14 | PC.NURSE ---
Pt resting on stretcher, sleeping at this time. Pt covered with blanket and VS taken. RN offered several times to bring an inpatient hospital bed down for pt to rest on throughout the night however pt refused several times during earlier interactions, stating he was more comfortable on the stretcher. RN monitoring. call light within reach.
--- NOTE | 2024-11-15 23:07 | PC.NURSE ---
patient asleep on stretcher, RN monitoring. call light within reach.
[2024-11-16] VITALS (49 sets, daily range): BP systolic 122–167; BP diastolic 71–101; PULSE 59–88; RESP 16–18; TEMP 36.4–36.6; O2SAT 79–100
--- NOTE | 2024-11-16 00:45 | PC.NURSE ---
VS obtained. pt asleep, RN monitoring. call light within reach.
--- NOTE | 2024-11-16 01:34 | PC.NURSE ---
pt asleep on stretcher. call light within reach. RN monitoring.
--- NOTE | 2024-11-16 02:16 | PC.NURSE ---
pt sleeping. RN monitoring.
--- NOTE | 2024-11-16 03:39 | PC.NURSE ---
VS obtained, WNL. pt asleep on stretcher in ED 6, remains awaiting bed assignment at transfer facility. call light within reach.
--- NOTE | 2024-11-16 05:23 | PC.NURSE ---
Pt awake, alert and ambulatory to bathroom at this time on his own. RN monitoring.
--- NOTE | 2024-11-16 05:43 | PC.NURSE ---
pt update provided, patient given toiletries to freshen up per RN at this time. VSS. call light within reach. pt transferred to hospital bed for comfort.
[2024-11-16] MEDS: HYDROmorphone HCL INJ (*CRX) 2 MG/ML VIAL 0.5 MG IV PUSH ×2 (06:24→12:58)
--- NOTE | 2024-11-16 06:40 | PC.NURSE ---
pt medicated per order for pain, see MAR. instructions provided and pt connected to pulse ox and blood pressure cuff. c-collar readjusted again. call light within reach. pt remains awaiting bed at [facility] for neurosurgery consult and further testing.
--- NOTE | 2024-11-16 07:09 | PC.NURSE ---
pt report given to ANGELICA Echols for continuation of care on day shift. pt resting on hospital bed in ED 6, remains awaiting bed at transfer facility. call light within reach.
--- NOTE | 2024-11-16 08:03 | PC.NURSE ---
Pt given hot breakfast tray. Pt sitting up at bedside eating meal.
--- NOTE | 2024-11-16 09:15 | PC.NURSE ---
RN places c-collar back on pt. Pt states that it was uncomfortable and removed it himself. Pt educated by RN on need to keep on c-collar.
--- NOTE | 2024-11-16 10:47 | PC.NURSE ---
Pt to CT scanner with radiology transport.
[2024-11-16] MEDS: PIPERACILLIN/TAZOBACTAM SOD 3.375 GM in SODIUM CHLORIDE 0.9% IV 50 ML 100 ML IVPB (12:37)
--- NOTE | 2024-11-16 12:43 | PC.NURSE ---
Pt yelling out to the nurses station. Pt demanding to get out of bed. Pt is red and sweating. RN pauses antibiotic administration and pages MD Jus to the bedside. Pt is thrashing around at bedside. Pt will not allow the RN or provider to conduct an assessment at this time. Pt cussing at staff demanding pain medicine.
--- NOTE | 2024-11-16 12:57 | PC.NURSE ---
RN attempts to adjust pt C-collar. Pt refuses to allow staff to touch the c-collar at this. MD Marvin present for this encounter.
--- NOTE | 2024-11-16 13:16 | PC.NURSE ---
Pt continues to paces around the room. Pt still continues to decline to let staff adjust his c-collar.
[2024-11-16] MEDS: VANCOMYCIN 1,250 MG/NS 250 ML 1,250 MG/250 ML BAG 166.67 MG IVPB ×2 (13:57→15:34)
[2024-11-16] MEDS: IBUPROFEN 600 MG TABLET PO (15:43)
[2024-11-16] MEDS: HYDROcodone/acetaminophen (*CRX) 10-325 MG TABLET 1 TAB PO (16:52)
--- NOTE | 2024-11-16 19:05 | PC.NURSE ---
Handoff report given to ANGELICA Dyer.
--- NOTE | 2024-11-19 12:52 | PC.NURSE ---
PRELIMINARY BLOOD CULTURE NO GROWTH IN 24 HOURS
--- NOTE | 2024-11-20 13:42 | PC.NURSE ---
Preliminary blood culture report; no growth in 48 hours.
--- NOTE | 2024-11-23 13:23 | PC.NURSE ---
final blood cultures x2 reviewed. no growth in 5 days. no change in plan of care
== END 2024-11-16 19:52 | disposition short-term general hospital (02) ==
PROVIDERS: Emergency Provider Emergency Medicine; PCP Family Medicine
DX: S12.600A Unspecified displaced fracture of seventh cervical vertebra, initial encounter for closed fracture (principal); M46.42 Discitis, unspecified, cervical region; M86.9 Osteomyelitis, unspecified; E78.5 Hyperlipidemia, unspecified; F17.210 Nicotine dependence, cigarettes, uncomplicated; I10 Essential (primary) hypertension; X58.XXXA Exposure to other specified factors, initial encounter
CPT/HCPCS: 36415; 71275; 72125; 72128; 80053; 83605; 85025; 85610; 85730; 86140; 96365; 96367; 96375; 96376; 99285; A9270; J1100; J1171; J2405; J2543; J3373; L0150; Q9967